=== PATIENT | female | born 2000 | race Caucasian/White ===

== ENCOUNTER 2021-03-15 15:48 | Inpatient (IN) | payer OTHER, SELFPAY ==
[2021-03-15] VITALS (10 sets, daily range): BP systolic 89–125; BP diastolic 43–77; PULSE 72–92; TEMP 36.5–36.6; BMI 45.6
--- OUTSIDE RECORDS SUMMARY | 2021-03-15 15:55 | XMS_ITS | Encounter Summary ---
:2000 Author Care Team Providers Name Role Phone Mya Muhammad Primary Care Provider [phone] Reason for Visit None recorded. Assessment and Plan 1. Gestational diabetes mellitus , class A>1< Diet teaching completed over t he phone as pt is pending COVID testing. Went over ideal ranges for FBS and pp BS. Haylie t over carb counting and carb ranges for each meal/snack. Gave ideas for foods to eat for meals/snacks. Discussed drink options and to avoid soda and juice. Pt drinks sweet tea and told pt to cut this out. Can do water with sugar free flavor enhancer. T old pt she can go online to ADA for meal options or to look up low carb meal reci pes online for ideas as well. Pt states she normally just eats 2 meals a day and [place] sn't really eat breakfast ever. Told pt importance of eating smaller, more frequ ent meals throughout the day. Even if it isn't a big meal to try to eat meals/sna cks. Pt picked up glucometer last night and a few of her levels were normal. Told pt t o continue checking BS QID and adjusting diet to follow low carb diet to try to keep B S within normal range. Pt aware if sugars aren't controlled by diet we would discu ss starting insulin. Went over NST schedule with pt and importance of keeping these appts and checking BS for her and baby's health. Pts questions were answered and pt verbalized understanding. FEDERICO nesbitt ? US, obstetric, follow-up Discussion Note: None recorded.Patient educational handouts: No information available. Plan of Care Reminders Provider Appointments Ob Routine 03/17/2021 Gee Moon, 10:30AM CNM ? Ob Routine 03/24/2021 Vandana Moon, 10:30AM CNM
--- OUTSIDE RECORDS SUMMARY | 2021-03-15 15:55 | XMS_ITS ---
:2000 Author Care Team Providers Name Role Phone HAMRAN JOSHI Primary Care Provider [phone] Allergies Code Code System Name Reaction Severity Status Onset NKDA ? Medications Name Status Start Date Stop Date ? ? cetirizine 10 mg tablet Active ? Not avai lable TAKE 1 TABLET BY MOUTH DAILY fluticasone propionate 50 mcg/actuation nasal spray,suspension A ctive ? Not available INSTILL 1 SPRAY IN EACH NOSTRIL TWICE DAILY FOR 14 DAYS OneTouch Delica Plus Lancet 30 gauge Active ? Not available USE TO TEST BLOOD GLUCOSE FOUR TIMES DAILY OneTouch Verio Reflect Meter Active ? Not available USE TO TEST BLOOD GLUCOSE FOUR TIMES DAILY OneTouch Verio test strips Active ? Not a vailable Active ? Not available Problems Name Status Onset Date Source ? Maternal Obesity Complicating , Active 021 ? Childbirth and the Puerperium, Antepartum Active 09/12/2020 ? Gestational Diabetes Mellitus, Class a>1< Active 2020 ? Procedures Date Name Performed by ? 08/28/2020 US, Obstetric, 1St Trimester [facility] [address] [place] [address] ([address]) 09/12/2020 US, Obstetric, Nuchal Translucency [place] [place] [address] [place], [place] [address]
--- OUTSIDE RECORDS SUMMARY | 2021-03-15 15:55 | XMS_ITS | Encounter Summary ---
:2000 Author Care Team Providers Name Role Phone Mya Muhammad Primary Care Provider [phone] Reason for Visit None recorded. Assessment and [...] verbalized understanding. FEDERICO nesbitt ? US, obstetric, biophysical profile + non-stress test Discussion Note: None recorded.Patient educational handouts: No information available. Plan of Care Reminders Provider Appointments Ob Routine 03/17/2021 Gee Moon, 10:30AM CNM ? Ob Routine 03/24/2021 Vandana Moon, 10:30AM
--- OUTSIDE RECORDS SUMMARY | 2021-03-15 15:55 | XMS_ITS | Encounter Summary ---
:2000 Author Care Team Providers Name Role Phone Mya Muhammad Primary Care Provider [phone] Reason for Visit None recorded. Assessment and Plan 1. Maternal obesity complicating , childbirth and the puerperium, antepartum ? non-stress test Discussion Note: None recorded.Patient educational handouts: No information available. Plan of Care Reminders Provider Appointments Ob Routine 03/17/2021 Gee Moon, 10:30AM CNM ? Ob Routine 03/24/2021 Vandana Moon, 10:30AM CNM ? 3Hr on or around [place] Glucose 04/25/2021 MD [facility] None ? ? recorded. Referral None ? ? recorded. Procedures None ? ? recorded. Surgeries None ? ? recorded. Imaging Non-stress 03/10/2021 M[facility]i [facility] Test Medications Name Start Date ? ? cetirizine 10 mg tablet ? TAKE 1 TABLET BY MOUTH DAILY fluticasone propionate 50 mcg/actuation nasal spray,lackey spension ? INSTILL 1 SPRAY IN EACH NOSTRIL TWICE DAILY FOR 14 DA YS OneTouch Delica Plus Lancet 30 gauge ? USE TO TEST BLOOD GLUCOSE FOUR TIMES DAILY OneTouch Verio Reflect Meter ? USE TO TEST BLOOD GLUCOSE FOUR TIMES DAILY OneTouch Verio test strips ? ? Medica
--- OUTSIDE RECORDS SUMMARY | 2021-03-15 15:55 | XMS_ITS | Encounter Summary ---
:2000 Author Care Team Providers Name Role Phone Mya Muhammad Primary Care Provider [phone] Reason for Visit OB visit 35w3d Assessment and Plan Assessment Note Patient is ___weeks . Discu ssed plan. Discussion Note: None recorded.Patient educational handouts: No information available. Plan of Care Reminders Provider Appointments Ob Routine 03/17/2021 Gee Moon, 10:30AM CNM ? Ob Routine 03/24/2021 Vandana Moon, 10:30AM CNM ? 3Hr on or around [place] Glucose 04/25/2021 MD [facility] None ? ? recorded. Referral None ? ? recorded. Procedures None ? ? recorded. Surgeries None ? ? recorded. Imaging None ? ? recorded. Medications Name Start Date ? ? cetirizine [...] DAILY OneTouch Verio test strips ? ? Medications Administered None recorded. Vitals
--- OUTSIDE RECORDS SUMMARY | 2021-03-15 15:55 | XMS_ITS | Encounter Summary ---
:2000 Author Care Team Providers Name Role Phone Mya Muhammad Primary Care Provider [phone] Reason for Visit OB visit Assessment and Plan Assessment Note Patient is ___weeks . Discu ssed plan. 1. Routine care Discussion Note: None recorded.Patient educational handouts: No [...] test strips ? ? Medications Administered None una
--- OUTSIDE RECORDS SUMMARY | 2021-03-15 15:55 | XMS_ITS | Encounter Summary ---
:2000 Author Care Team Providers Name Role Phone Mya Muhammad Primary Care Provider [phone] Reason for Visit None recorded. Assessment and [...]
--- OUTSIDE RECORDS SUMMARY | 2021-03-15 15:55 | XMS_ITS | Encounter Summary ---
:2000 Author Care Team Providers Name Role Phone Mya Muhammad Primary Care Provider [phone] Reason for Visit None recorded. Assessment and [...] Surgeries None ? ? recorded. Imaging Non-stress 03/03/2021 [facility] Test Medications Name Start Date [...] DAILY OneTouch Verio test strips ? ? Medicat
--- OUTSIDE RECORDS SUMMARY | 2021-03-15 15:55 | XMS_ITS | Encounter Summary ---
:2000 Author Care Team Providers Name Role Phone Mya Muhammad Primary Care Provider [phone] Reason for Visit None recorded. Assessment and [...] and pt verbalized understanding. FEDERICO nesbitt ? non-stress test Discussion Note: None recorded.Patient educational handouts: No information available. Plan of Care Reminders Provider Appointments Ob Routine 03/17/2021 Gee Moon, 10:30AM CNM ? Ob Routine 03/24/2021 Vandana Moon, 10:30AM CNM ?
--- OUTSIDE RECORDS SUMMARY | 2021-03-15 15:55 | XMS_ITS | Encounter Summary ---
:2000 Author Care Team Providers Name Role Phone Mya Muhammad Primary Care Provider [phone] Reason for Visit OB visit Assessment and Plan 1. Maternal obesity complicating , childbirth and the puerperium, antepartum 2. Gestational diabetes mellitus , class A>1< Discussion Note: None recorded.Patient educational handouts: No [...] DAILY OneTouch Verio test strips ? ? M
--- OUTSIDE RECORDS SUMMARY | 2021-03-15 15:55 | XMS_ITS | Encounter Summary ---
:2000 Author Care Team Providers Name Role Phone Mya Muhammad Primary Care Provider [phone] Reason for Visit OB visit Assessment and [...] test strips ? ? Medications Administered None rec
--- OUTSIDE RECORDS SUMMARY | 2021-03-15 15:55 | XMS_ITS | Encounter Summary ---
:2000 Author Care Team Providers Name Role Phone Mya Muhammad Primary Care Provider [phone] Reason for Visit OB visit Assessment and Plan 1. Gestational diabetes mellitus , class A>1< 2. Maternal obesity complicating , childbirth and the puerperium, antepartum Discussion Note: None recorded.Patient educational handouts: No [...] DAILY OneTouch Verio test strips ? ? Med
--- OUTSIDE RECORDS SUMMARY | 2021-03-15 15:55 | XMS_ITS | Encounter Summary ---
:2000 Author Care Team Providers Name Role Phone Mya Muhammad Primary Care Provider [phone] Reason for Visit None recorded. Assessment and Plan 1. Gestational diabetes mellitus , class A>1< ? US, obstetric, biophysical profile + non-stress test Discussion Note: None recorded.Patient educational handouts: No information available. Plan of Care Reminders Provider Appointments Ob Routine 03/17/2021 Gee Moon, 10:30AM CNM ? Ob Routine 03/24/2021 Vandana Moon, 10:30AM CNM ? 3Hr Glucose on or around [place] 04/25/2021 MD [facility] None ? ? recorded. Referral None ? ? recorded. Procedures None ? ? recorded. Surgeries None ? ? recorded. Imaging US, 03/03/2021 [place] [facility], Biophysical Profile + Non-stress Test Medications Name Start Date ? ? [...] TEST BLOOD GLUCOSE FOUR TIMES DAILY OneTouch Ve
--- OUTSIDE RECORDS SUMMARY | 2021-03-15 15:55 | XMS_ITS | Encounter Summary ---
:2000 Author Care Team Providers Name Role Phone Mya Muhammad Primary Care Provider [phone] Reason for Visit None recorded. Assessment and [...]
--- OUTSIDE RECORDS SUMMARY | 2021-03-15 15:56 | XMS_ITS | Encounter Summary ---
:2000 Author Care Team Providers Name Role Phone Mya Muhammad Primary Care Provider [phone] Reason for Visit None recorded. Assessment and [...] Surgeries None ? ? recorded. Imaging Non-stress 02/10/2021 [facility] Test Medications Name Start Date [...] DAILY OneTouch Verio test strips ? ? Medic
--- OUTSIDE RECORDS SUMMARY | 2021-03-15 15:56 | XMS_ITS | Encounter Summary ---
:2000 Author Care Team Providers Name Role Phone Mya Muhammad Primary Care Provider [phone] Reason for Visit None recorded. Assessment and Plan 1. Gestational diabetes mellitus ? US, obstetric, follow-up Discussion Note: None [...] Surgeries None ? ? recorded. Imaging US, 01/15/2021 [facility], Follow-up Medications Name Start Date ? ? cetirizine [...]
--- OUTSIDE RECORDS SUMMARY | 2021-03-15 15:56 | XMS_ITS | Encounter Summary ---
:2000 Author Care Team Providers Name Role Phone Mya Muhammad Primary Care Provider [phone] Reason for Visit OB visit Assessment and [...] ? ? Medications Administered None recorded. Vitals Height Weight BMI
--- OUTSIDE RECORDS SUMMARY | 2021-03-15 15:56 | XMS_ITS | Encounter Summary ---
:2000 Author Care Team Providers Name Role Phone Mya Muhammad Primary Care Provider [phone] Reason for Visit OB visit Assessment and Plan Assessment Note Patient is ___weeks . Discu ssed plan. 1. Routine care ? US, obstetric, 2nd or 3rd trimester Discussion Note: None recorded.Patient educational handouts: No [...] Surgeries None ? ? recorded. Imaging US, 01/13/2021 [facility], 2Nd or 3Rd Imaging Trimester Medications Name Start Date ? ? cetirizine 10 mg tablet ? TAKE 1 TABLET BY MOUTH DAILY fluticasone propionate 50 mcg/actuation nasal spray,lackey spension ? INSTILL 1 SPRAY IN EACH NOSTRIL TWICE DAILY FOR 14 DA YS OneTouch Delica Plus Lancet 30 gauge ? USE TO TEST BLOOD GLUCOSE FOUR TIMES DAILY OneTouch Verio Reflect Meter ? USE TO TEST BLOOD GLUC
--- OUTSIDE RECORDS SUMMARY | 2021-03-15 15:56 | XMS_ITS | Encounter Summary ---
:2000 Author Care Team Providers Name Role Phone Mya Muhammad Primary Care Provider [phone] Reason for Visit OB visit Assessment and Plan 1. Routine care Discussion Note: None recorded.Patient educational handouts: No information available. Plan of Care Reminders Provider Appointments Ob Routine 03/17/2021 Gee Moon, 10:30AM CNM ? Ob Routine 03/24/2021 Vandana Moon, 10:30AM CNM ? 3Hr on or around [place] Glucose 04/25/2021 MD [facility] None ? [...] Administered None recorded. Vitals Height Weight BMI Blood Pressure 5 ft 6 in 263 lbs 42.4 kg/m2
--- OUTSIDE RECORDS SUMMARY | 2021-03-15 15:56 | XMS_ITS | Encounter Summary ---
:2000 Author Care Team Providers Name Role Phone Mya Muhammad Primary Care Provider [phone] Reason for Visit None recorded. Assessment and Plan 1. Gestational diabetes mellitus , class A>1< ? US, obstetric, follow-up ? US, obstetric, biophysical profile + non-stress [...] Surgeries None ? ? recorded. Imaging US, 02/10/2021 [facility], Follow-up ? US, 02/10/2021 [facility], Biophysical Profile + Non-stress Test Medications Name Start Date ? ? cetirizine 10 mg tablet ? TAKE 1 TABLET BY MOUTH DAILY fluticasone propionate 50 mcg/actuation nasal spray,lackey spension ? INSTILL 1 SPRAY IN EACH NOSTRIL TWICE DAILY FOR 14 DA YS
[2021-03-15 16:20] LABS: Basophils Percent Auto 0.1 % (0.2-1.2); Eosinophils Absolute Auto 0.1 K/mm3 (0-0.3); Eosinophils Percent Auto 0.7 % (0-4.4); Hemoglobin 11.2 g/dL (12.0-15.0); Immature Granulocyte Absolute 0.07 K/mm3 (0.00-0.031); Immature Granulocyte Percent A 0.6 % (0-0.5); Lymphocytes Percent Auto 18.7 % (18.3-44.2); Mean Corpuscular HGB Conc 31.1 g/dl (32-36); Mean Corpuscular Hemoglobin 24.7 pg (26-34); Mean Corpuscular Volume 79.3 fl (80-100); Mean Platelet Volume 10.5 fl (7.4-10.4); Monocytes Absolute Auto 0.5 K/mm3 (0.1-0.6); Monocytes Percent Auto 4.4 % (2.6-8.5); Neutrophils Absolute Auto 8.9 K/mm3 (1.3-6.7); Neutrophils Percent Auto 75.5 % (45.5-73.1); Platelet Count Result 313 k/mm3 (150-375); Red Blood Count 4.54 M/mm3 (4.2-5.4); Red Cell Distribution Width 15.7 % (11.5-14.5); White Blood Count 11.8 K/mm3 (4.5-10.0)
--- NOTE | 2021-03-15 16:20 | LDADM ---
This patient, Mahogany Burns, was admitted to Labor/Delivery/Recovery 107 on 03/15/21 at 15:48. Plans for labor, pain management and were discussed with patient. Patient/family oriented to hospital policies and general routines including ID bracelet, bed and alarms, visiting hours, pain management, procedures, bathroom and other care routines, personal items, smoking policy, room service/diet and guest tray routines, security routines, and visiting hours. Patient/Family are encouraged to report perceived risks to care and to ask questions if they do not understand what they are told or what they should do. See OBIX for further documentation.
[2021-03-15 16:33] LABS: Glucose Point of Care 68 mg/dl (65-105)
[2021-03-15] MEDS: DINOPROSTONE 10 MG VAG INSERT VAGINAL (16:49)
--- NOTE | 2021-03-15 17:05 | P.PNAN_ITS ---
Anes - Eval Pre Procedure Procedure: labor epidural Date/Time: 03/15/21 17:05 Surgeon: anamika Pre Op Diagnosis: Labor Patient Data Age: 20 Gender: F Height: 1.65 m Weight: 124.5 kg Last Vital Signs Pulse 84 03/15/21 17:01 BP 114/55 L 03/15/21 17:01 Allergies Allergy/AdvReac Type Severity Reaction Status Date / Time No Known Allergies Allergy Verified 03/03/21 12:07 Home Medications Medication Instructions Recorded Confirmed Type prenat.vits,sp,guc-ydil-vjzfn 1 tablet PO DAILY 03/03/21 03/03/21 History [ #2] Laboratory Tests 03/15/21 03/15/21 03/15/21 16:12 16:14 16:14 WBC 11.8 K/mm3 H K/mm3 (4.5-10.0) RBC 4.54 M/mm3 M/mm3 (4.2-5.4) Hgb 11.2 g/dL L g/dL (12.0-15.0) Hct 36.0 % L % (37.0-47.0) MCV 79.3 fl L fl (80-100) MCH 24.7 pg L pg (26-34) MCHC 31.1 g/dl L g/dl (32-36) RDW 15.7 % H % (11.5-14.5) Plt Count 313 k/mm3 k/mm3 (150-375) MPV 10.5 fl H fl (7.4-10.4) Immature Gran % (Auto) 0.6 % H % (0-0.5) Neut % (Auto) 75.5 % H % (45.5-73.1) Lymph % (Auto) 18.7 % % (18.3-44.2) [place] % (Auto) 4.4 % % (2.6-8.5) Eos % (Auto) 0.7 % % (0-4.4) Baso % (Auto) 0.1 % L % (0.2-1.2) Lymph # (Auto) 2.20 K/mm3 K/mm3 (0.9-3.2) [place] # (Auto) 0.5 K/mm3 K/mm3 (0.1-0.6) Eos # (Auto) 0.1 K/mm3 K/mm3 (0-0.3) Baso # (Auto) 0.0 K/mm3 K/mm3 (0.0-0.1) Abs Immat Gran (auto) 0.07 K/mm3 H K/mm3 (0.00-0.031) Absolute Neuts (auto) 8.9 K/mm3 H K/mm3 (1.3-6.7) Absolute Nucleated RBC 0.0 K/mm3 K/mm3 (0.0-0.012) Nucleated RBC % 0.0 % % (0.0-0.2) POC Capillary Glucose 68 mg/dl mg/dl (65-105) RPR Pending Patient hx anesthesia problems: none Family hx anesthesia problems: none Results Review: All pre-operative results and documents have been reviewed as part of the pre-operative evaluation. [facility] Family History Family History (Updated 03/03/21 @ 12:10 by Soledad Dumont RN) Grandparent Diabetes mellitus Bone cancer Liver cancer Social History Social History Smoking status: Never smoker Substance use: never Spiritual care concerns: No Exam Day of Procedure 03/15/21 17:05
[2021-03-16] VITALS (106 sets, daily range): BP systolic 64–142; BP diastolic 24–93; PULSE 68–150; RESP 12–16; TEMP 36.1–37.1; O2SAT 97–100
[2021-03-16] MEDS: ACETAMINOPHEN 325 MG TABLET 650 MG PO (00:07)
[2021-03-16 00:12] LABS: Glucose Point of Care 110 mg/dl (65-105)
[2021-03-16 04:08] LABS: Glucose Point of Care 97 mg/dl (65-105)
--- NOTE | 2021-03-16 06:48 | WPDOBADMIT ---
Obstetrics - Admit Note Admission Note: record reviewed. No pertinent additions to the history and/or any subsequent changes in the physical findings that are not consistent with the expected course of the were found. Additions to the history and/or subsequent changes in the physical findings follow. IOL cervidil 39 weeks, GDMA1
--- NOTE | 2021-03-16 06:49 | PM.OBPRVD ---
OB - Delivery Note Procedure Delivery date: 03/16/21 Procedure: events: Gestational Diabetes Delivery monitor: external FHT and external uterine Route of delivery: Episiotomy description: None Laceration Description: Perineal - 1st Degree Delivery repair: vicryl Specimen: No Quantitative Blood Loss (ml): 150 Anesthesia type: Epidural Disposition: floor Narrative: With adequate expulsive efforts by the mother, the baby's head was delivered OA. The baby's anterior shoulder was delivered under the pubic symphysis without difficulty. The posterior shoulder and the rest of the baby delivered without difficulty. The infant was placed on the mothers chest and suctioned and stimulated. The cord was clamped and cut after 30 seconds. Mother and baby both stable. Baby Date of : 03/16/21 Time of : 06:36 Weeks of gestation at delivery: 39 gender: Female Weight (pounds): 8 Weight (ounces): 0 presentation: vertex Placenta delivery description: Spontaneous cord vessel description: 3 Vessels and Nuchal Cord score one minute: 8 score five minutes: 9
[2021-03-16] MEDS: OXYTOCIN 30 UNITS/NS 500 ML 30 UNITS/500 ML BAG 125 UNITS IV CONT (07:18)
[2021-03-16] MEDS: WITCH HAZEL 40 PADS 1 PAD TOPICAL (09:30)
[2021-03-16] MEDS: BENZOCAINE 20% AER SPR (*SP) 56 GM CAN 1 SPRAY TOPICAL (09:30)
[2021-03-16 10:27] LABS: Rapid Plasma Reagin Non-Reactive (NonReactive)
--- NOTE | 2021-03-16 10:33 | OBPPTRN ---
0938 Patient transferred to post room #281 via W/C. Support person present. Oriented to unit, room, information board, rooming in, admission packet and security measures. Patient verbalizes understanding.
[2021-03-16] MEDS: IBUPROFEN 600 MG TABLET PO (19:37)
[2021-03-17 00:30] VITALS: BP 141/84; PULSE 82; RESP 16; TEMP 36.9; O2SAT 100
[2021-03-17 04:35] VITALS: BP 113/66; PULSE 100; RESP 18; TEMP 36.7; O2SAT 100
[2021-03-17 05:35] LABS: Hematocrit 34.5 % (37.0-47.0); Hemoglobin 10.5 g/dL (12.0-15.0)
[2021-03-17] MEDS: ACETAMINOPHEN 325 MG TABLET 650 MG PO (06:04)
--- NOTE | 2021-03-17 07:48 | PM.OBPNVD ---
OB - PN: Subj Subjective Date/time seen: 03/17/21 07:48 Patient comments: no complaints, pain well controlled and tolerating diet [place] baby status: doing well and nursing well [place] feeding status: exclusively breast feeding Narrative: would like DC today OB - PN: Obj Data Labs CBC & Chem 7: 03/17/21 04:57 Labs: Laboratory Results - last 24 hr 03/15/21 03/17/21 16:14 04:57 Hgb 10.5 L Hct 34.5 L RPR Non-reactive OB - PN A/P Plan day: 1 Plan: routine care and discharge home Time Spent With Patient Time: Total time spent is greater than 50% in coordination of care (as documented) at patient's floor/unit and/or counseling patient: Time with patient: less than 15 minutes Exam Narrative: NAD abdomen soft, nontender, fundus firm below the umbilicus Extremities nontender, 1+ edema
--- NOTE | 2021-03-17 07:50 | PM.OBDSVD ---
DS: Admitting Diagnosis Discharge Date 03/17/21 Admitting Diagnosis term IUP DS: Discharge Diagnosis Discharge Diagnosis (1) , delivered: Code(s): O80 - Encounter for full-term uncomplicated delivery Status: Acute OB - DS: Summary OB Procedures : Ultrasound OB Procedures Intrapartum: Spontaneous Vag Delivery OB Procedures: : None Peripartum Data Infant Delivery Method: Natural Vaginal Laceration Description: Perineal - 1st Degree complications: none Status at Discharge Functional status at discharge: independent ambulation Time Spent with Patient Time attestation: Total time spent providing and/or coordinating discharge services: Exam Narrative: NAD abdomen soft, appropriately tender Ext non tender, 1+ edema DS: Data Data Completed and Pending Labs on day of discharge: Labs from last 24 hours 03/17/21 03/15/21 04:57 16:14 Hgb 10.5 L Hct 34.5 L RPR Non-reactive Discharge Plan Discharge Attending physician on discharge: Dominique Mg Discharging Clinician: Dominique Mg Anticipated Discharge Date/Time: 03/17/21 14:00 Patient Disposition: Home, Self-Care Activity: may shower and pelvic rest Diet: as tolerated Patient Instructions: Antibiotic Form Stand Alone Forms: General Discharge Information Follow-up/Referrals: Dominique Mg MD [Physician] - 4 Weeks Discharge Medications: Continued #2 Tablet 1 tablet PO DAILY RF: 0 Date of admission: 03/15/21 15:48 Primary Care Provider: Radha,Mya Dejesus Admitting Provider: Dominique Mg Attending physician on admission: Dominique Mg Condition: Stable
[2021-03-17] MEDS: MULTIVIT/MIN/PREN/FOL AC/IRON TABLET 1 TAB PO (08:24)
[2021-03-17 08:25] VITALS: BP 121/67; PULSE 89; RESP 18; TEMP 36.3; O2SAT 98
--- NOTE | 2021-03-17 09:20 | PC.NURSE ---
Mother called out for assist with feeding, reporting tenderness with feeding and is on and off several times. Infant is at breast with a shallow latch in cross cradle. Mother reports she has been given a nipple shield and is not using shield. Infant is able to freely thrust tongue past gum ridge and flange both lips. Skin is intact on both nipples, slight redness noted no bruising noted. Suggested mother release latch. Assisted with to breast. Reviewed positioning/alignment in cross cradle, holding breast in ?U? hold and guided asymmetrical latch on. Reviewed rational for each. able to latch correctly within a few attempts. Infant nursed eagerly with steady draws and occasional swallowing noted, some pausing noted. Reviewed signs of a correct latch, effective nursing and suck swallow ratio. Suggested mother stimulate while feeding to increase stimulate, increase intake and to assist with maintaining deep latch. would slip to shallow latch causing tenderness. Demonstrated how to adjust latch more deeply while feeding if needed. Mother reports she can feel the difference in latch with less tenderness. Mother released hold on breast infant slipped to shallow latch. Advised to hold breast during entire feeding to assist with maintaining deep latch. Reviewed infant feeding cues, frequencies, duration of feedings, feeding elimination flow sheet, and signs of adequate intake. Nipple care reviewed of lanolin after feedings, warm compresses as needed. Instructed mother to call out for RN assistance if she is unable to latch infant for feeding or she has discomfort with nursing. Instructed feeding should be initiated three hours from start of last feeding or if feeding cues are noted before. Mother voiced understanding of information shared. Mother reports she wishes to be discharged today. Mother is feeding as required and waking to feed if needed. Infant is currently meeting outcomes for weight, output, jaundice and feeding frequencies. Mother states she feels confident to continue at home. Advised to continue to work with deep latch. Reviewed transition to breast milk, signs of adequate intake, and engorgement/relief. Instructed to call ICP if intake/output less than required. Reviewed regular medications mother is taking. Information provided per My. Reviewed community resources on the [facility] website and in the Mom/Baby guide. Information on outpatient services provided. Mother has no further questions at this time.
--- NOTE | 2021-03-17 09:43 | WPDANLDPN2 ---
Anes-Prog Note L&D Date/Time: 03/17/21 09:43 Comfortable throughout: labor and delivery Neuraxial method: epidural Epidural/Spinal procedure site: clean & non-tender Neuro status: Neuro function grossly intact. Cardiovascular status: normal Respiratory status: normal Airway patency: baseline Mental status: baseline Post-Op hydration status: normal Vital Signs: Last Vital Signs Temp 36.3 C L 03/17/21 08:25 Pulse 89 03/17/21 08:25 Resp 18 03/17/21 08:25 BP 121/67 03/17/21 08:25 Pulse Ox 98 03/17/21 08:25 Pain score (VAS): 06/08 Post-procedural complaints: none Patient feedback: Patient satisfied with anesthetic care.
--- NOTE | 2021-03-17 13:20 | PC.NURSE ---
1100 Patient viewed the discharge video Mother & Baby Care, The First Two Weeks . Patient was given the opportunity and encouraged to ask questions. Patient verbalized understanding of information shared and has been given the mother/baby guide for home reference.
[2021-03-18 10:29] VITALS: BP 119/71; PULSE 81; RESP 20; TEMP 36.9; O2SAT 99
== END 2021-03-17 11:25 | disposition home or self-care (01) | DRG 560 ==
LOC: ANHLDR 15:53 → ANHOB2 03-16 09:44
PROVIDERS: Admitting Provider Obstetrics & Gynecology; PCP Family Medicine; Visit Provider Obstetrics & Gynecology
DX: O24.429 Gestational diabetes mellitus in childbirth, unspecified control (principal); Z37.0 Single live birth; Z3A.39 39 weeks gestation of pregnancy; O70.0 First degree perineal laceration during delivery
CPT/HCPCS: 36415; 82948; 84112; 85014; 85018; 85025; 86592; 86850; 86900; 86901; A9270; J2590; J2795

== ENCOUNTER 2022-02-09 04:40 | Inpatient (IN) | payer OTHER, SELFPAY ==
[2022-02-09] VITALS (35 sets, daily range): BP systolic 96–146; BP diastolic 46–74; PULSE 63–120; RESP 16–18; TEMP 36.2–36.8; O2SAT 96–100; BMI 45.8
--- OUTSIDE RECORDS SUMMARY | 2022-02-09 04:55 | XMS_ITS ---
:2000 Author Care Team Providers Name Role Phone HARMAN JOSHI Primary Care Provider [phone] Allergies Code Code System Name Reaction Severity Status Onset NKDA ? Medications Name Status Start Date Stop Date ? ? cetirizine 10 mg tablet Completed ? 04/17/20 21 TAKE 1 TABLET BY MOUTH DAILY fluticasone propionate 50 mcg/actuation nasal spray,suspension C ompleted ? 04/17/2021 INSTILL 1 SPRAY IN EACH NOSTRIL TWICE DAILY FOR 14 DAYS OneTouch Delica Plus Lancet 30 gauge Completed ? 04/17/2021 USE TO TEST BLOOD GLUCOSE FOUR TIMES DAILY OneTouch Verio Reflect Meter Completed ? USE TO TEST BLOOD GLUCOSE FOUR TIMES DAILY OneTouch Verio test strips Active ? Not a vailable Active ? Not available Problems Name Status Onset Date Source ? Maternal Obesity Complicating , Childbirth and the Acti ve 09/12/2020 ? Puerperium, Antepartum Unknown 09/12/2020 ? Gestational Diabetes Mellitus, Class a>1< Unknown 2020 ? Vaccination Not Done Active 06/30/2021 ? Active 07/28/2021 ? Gestational Diabetes Mellitus, Class a>1< Active 2021 ? Social Problem Active 01/19/2022 ? Procedures Date Name Performed by ? 08/28/2020 US, Obstetric, 1St Trimester [place] [address] [place] [address] ([address]) 09/12/2020 US, Obstetric, Nuchal Translucency [facility] [address]
--- OUTSIDE RECORDS SUMMARY | 2022-02-09 04:56 | XMS_ITS | Encounter Summary ---
:2000 Author Care Team Providers Name Role Phone Mya Muhammad Primary Care Provider [phone] Reason for Visit OB visit OB [id number] EDC 02/18/2022 LMP 06/14/2020 Assessment and Plan 1. Gestational diabetes mellitus, class A>1< 2. Maternal obesity complicating pregna ncy, childbirth and the puerperium, antepartum Discussion Note: None recorded.Patient educational handouts: No information available. Plan of Care Reminders Provider Appointments Induction 02/15/2022 6:00AM Dominique Mg MD ? Ob Routine 02/16/2022 4:00PM Dominique Mg MD ? Nst 02/16/2022 3:00PM Nst, , EQUIP ? U/S OB BPP 02/16/2022 3:30PM Ultrasound, TECH ? 3Hr Glucose on or around 04/01/2022 Dominique iris Mg MD Lab None recorded. ? ? Referral None recorded. ? ? Procedures None recorded. ? ? Surgeries None recorded. ? ? Imaging None recorded. ? ? Medications Name Start Date ? ? OneTouch Verio test strips ? ? Medications Administered None recorded. Vitals Height Weight BMI Blood Pressure 5 ft 6 in 270 lbs 43.6 kg/m2 117/74 mm[Hg] Results Lab Results None recorded. Allergies Code Code System Name Reaction Severity Onset NKDA ? ? ? Problems Name Status Onset Date Source ? Maternal Obesity Complicating , Childbirth and the Acti ve 09/12/2020 ? Puerperium, Antepartum Vaccination Not Done Active 06/30/2021 ? Active 07/28/2021 ? Gestation
--- OUTSIDE RECORDS SUMMARY | 2022-02-09 04:56 | XMS_ITS | Encounter Summary ---
:2000 Author Care Team Providers Name Role Phone Mya Muhammad Primary Care Provider [phone] Reason for Visit None recorded. Assessment and Plan 1. Gestational diabetes mellitus, class A>1< ? US, obstetric, biophysical profile + non-stress test Discussion Note: None recorded.Patient educational handouts: No information available. Plan of Care Reminders Provider Appointments Induction 02/15/2022 6:00AM Dominique Mg MD ? Ob Routine 02/16/2022 4:00PM Dominique Mg MD ? Nst 02/16/2022 3:00PM Nst, , EQUIP ? U/S OB BPP 02/16/2022 3:30PM Ultrasound, TECH ? 3Hr Glucose on or around Dominique perez MD 04/01/2022 Lab None recorded. ? ? Referral None recorded. ? ? Procedures None recorded. ? ? Surgeries None recorded. ? ? Imaging US, Obstetric, 01/12/2022 [place] Biophysical Profile + Non-stress Test Medications Name Start Date ? ? OneTouch Verio test strips ? ? Medications Administered None recorded. Vitals None recorded. Results Lab Results None recorded. Allergies Code Code System Name Reaction Severity Onset NKDA ? ? ? Problems Name Status Onset Date Source ? Maternal Obesity Complicating , Childbirth and the Acti ve 09/12/2020 ? Puerperium, Antepartum Vaccination Not Done Active 06/30/2021 ? Active 07/28/2021
--- OUTSIDE RECORDS SUMMARY | 2022-02-09 04:56 | XMS_ITS | Encounter Summary ---
:2000 Author Care Team Providers Name Role Phone Mya Muhammad Primary Care Provider [phone] Reason for Visit None recorded. Assessment and Plan 1. Gestational diabetes mellitus, class A>1< ? non-stress test Discussion Note: None recorded.Patient [...] ? Surgeries None recorded. ? ? Imaging Non-stress Test 02/02/2022 [place] Medications Name Start Date ? ? OneTouch [...]
--- OUTSIDE RECORDS SUMMARY | 2022-02-09 04:56 | XMS_ITS | Encounter Summary ---
:2000 Author Care Team Providers Name Role Phone Mya Muhammad Primary Care Provider [phone] Reason for Visit None recorded. Assessment and [...] None recorded. ? ? Imaging Non-stress Test 01/26/2022 [place] Medications Name Start Date ? ? OneTouch [...]
--- OUTSIDE RECORDS SUMMARY | 2022-02-09 04:56 | XMS_ITS | Encounter Summary ---
:2000 Author Care Team Providers Name Role Phone Mya Muhammad Primary Care Provider [phone] Reason for Visit None recorded. Assessment and Plan 1. Gestational diabetes mellitus, class A>1< ? US, obstetric, follow-up ? [...] None recorded. ? ? Imaging US, Obstetric, Follow-up 01/26/2022 [place] ? US, Obstetric, 01/26/2022 [place] Biophysical Profile + Non-stress Test Medications Name [...]
--- OUTSIDE RECORDS SUMMARY | 2022-02-09 04:56 | XMS_ITS | Encounter Summary ---
:2000 Author Care Team Providers Name Role Phone Mya Muhammad Primary Care Provider [phone] Reason for Visit None recorded. Assessment and Plan 1. Maternal obesity complicating pregna ncy, childbirth and the puerperium, antepartum ? US, obstetric, biophysical profile + non-stress [...] None recorded. ? ? Imaging US, Obstetric, 01/19/2022 [place] Biophysical Profile + Non-stress Test Medications Name [...]
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
--- OUTSIDE RECORDS SUMMARY | 2022-02-09 04:56 | XMS_ITS | Encounter Summary ---
:2000 Author Care Team Providers Name Role Phone Mya Muhammad Primary Care Provider [phone] Reason for Visit None recorded. Assessment and [...] None recorded. ? ? Imaging Non-stress Test 01/19/2022 [place] Medications Name Start Date ? ? OneTouch [...]
--- OUTSIDE RECORDS SUMMARY | 2022-02-09 04:56 | XMS_ITS | Encounter Summary ---
:2000 Author Care Team Providers Name Role Phone Mya Muhammad Primary Care Provider [phone] Reason for Visit OB visit Assessment and Plan 1. Gestational diabetes mellitus, [...] BMI Blood Pressure 5 ft 6 in 275 lbs 44.4 kg/m2 115/75 mm[Hg] Results Lab Results None recorded. Allergies Code Code System Name Reaction Severity Onset NKDA ? ? ? Problems Name Status Onset Date Source ? Maternal Obesity Complicating , Childbirth and the Acti ve 09/12/2020 ? Puerperium, Antepartum Vaccination Not Done Active 06/30/2021 ? Active 07/28/2021 ? Gestational Diabetes Mellitus, Class a>1< Active 2021 ?
--- OUTSIDE RECORDS SUMMARY | 2022-02-09 04:56 | XMS_ITS | Encounter Summary ---
:2000 Author Care Team Providers Name Role Phone Mya Muhammad Primary Care Provider [phone] Reason for Visit None recorded. Assessment and [...] None recorded. ? ? Imaging US, Obstetric, 02/02/2022 [place] Biophysical Profile + Non-stress Test Medications Name [...]
--- OUTSIDE RECORDS SUMMARY | 2022-02-09 04:56 | XMS_ITS | Encounter Summary ---
:2000 Author Care Team Providers Name Role Phone Mya Muhammad Primary Care Provider [phone] Reason for Visit OB visit Assessment and [...] BMI Blood Pressure 5 ft 6 in 272 lbs 43.9 kg/m2 139/89 mm[Hg] Results Lab Results None recorded. Allergies Code Code System Name Reaction Severity Onset NKDA ? ? ? Problems Name Status Onset Date Source ? Maternal Obesity Complicating , Childbirth and the Acti ve 09/12/2020 ? Puerperium, Antepartum Vaccination Not Done Active
--- OUTSIDE RECORDS SUMMARY | 2022-02-09 04:56 | XMS_ITS | Encounter Summary ---
:2000 Author Care Team Providers Name Role Phone Mya Muhammad Primary Care Provider [phone] Reason for Visit None recorded. Assessment and [...] None recorded. ? ? Imaging Non-stress Test 01/12/2022 [place] Medications Name Start Date ? ? OneTouch [...]
--- OUTSIDE RECORDS SUMMARY | 2022-02-09 04:57 | XMS_ITS | Encounter Summary ---
:2000 Author Care Team Providers Name Role Phone Mya Muhammad Primary Care Provider [phone] Reason for Visit None recorded. Assessment and Plan 1. Maternal obesity complicating pregna ncy, childbirth and the puerperium, antepartum ? US, obstetric, follow-up Discussion Note: None [...] None recorded. ? ? Imaging US, Obstetric, 12/03/2021 [place] Follow-up Medications Name Start Date ? ? OneTouch [...] a>1< Active 2021 ? Social Problem Active 01/19
--- OUTSIDE RECORDS SUMMARY | 2022-02-09 04:57 | XMS_ITS | Encounter Summary ---
:2000 Author Care Team Providers Name Role Phone Mya Muhammad Primary Care Provider [phone] Reason for Visit None recorded. Assessment and Plan 1. Gestational diabetes mellitus, class A>1< ? US, obstetric, follow-up Discussion Note: None [...] None recorded. ? ? Imaging US, Obstetric, 12/29/2021 [place] Follow-up Medications Name Start Date ? ? [...] Social Problem Active 01/19/2022 ? Procedures Date N
--- OUTSIDE RECORDS SUMMARY | 2022-02-09 04:57 | XMS_ITS | Encounter Summary ---
:2000 Author Care Team Providers Name Role Phone Mya Muhammad Primary Care Provider [phone] Reason for Visit None recorded. Assessment and Plan 1. Gestational diabetes mellitus, class A>1< ? US, obstetric, biophysical profile + non-stress test Discussion Note: None recorded.Patient educational handouts: No information available. Plan of Care Reminders Provider Appointments Induction 02/15/2022 6:00AM Doimnique Mg MD ? Ob Routine 02/16/2022 4:00PM Dominique Mg MD ? Nst 02/16/2022 3:00PM Nst, , EQUIP ? U/S OB BPP 02/16/2022 3:30PM Ultrasound, TECH ? 3Hr Glucose on or around Dominique perez MD 04/01/2022 Lab None recorded. ? ? Referral None recorded. ? ? Procedures None recorded. ? ? Surgeries None recorded. ? ? Imaging US, Obstetric, 01/05/2022 [place] Biophysical Profile + Non-stress Test Medications Name [...]
--- OUTSIDE RECORDS SUMMARY | 2022-02-09 04:57 | XMS_ITS | Encounter Summary ---
:2000 Author Care Team Providers Name Role Phone Mya Muhammad Primary Care Provider [phone] Reason for Visit OB visit Assessment and Plan Assessment Note Patient is ___weeks . Discussed plan. 1. Gestational diabetes mellitus, class A>1< 2. [...] BMI Blood Pressure 5 ft 6 in 274 lbs 44.2 kg/m2 111/72 mm[Hg] Results Lab Results None recorded. Allergies Code Code System Name Reaction Severity Onset NKDA ? ? ? Problems Name Status Onset Date Source ? Maternal Obesity Complicating , Childbirth and the Acti ve 09/12/2020 ? Puerperium, Antepartum Vaccination Not Done Active 06/30/2021 ?
--- OUTSIDE RECORDS SUMMARY | 2022-02-09 04:57 | XMS_ITS | Encounter Summary ---
:2000 Author Care Team Providers Name Role Phone Mya Muhammad Primary Care Provider [phone] Reason for Visit OB visit Assessment and [...] BMI Blood Pressure 5 ft 6 in 273 lbs 44.1 kg/m2 114/67 mm[Hg] Results Lab Results None recorded. Allergies Code Code System Name Reaction Severity Onset NKDA ? ? ? Problems Name Status Onset Date Source ? Maternal Obesity Complicating , Childbirth and the Acti ve 09/12/2020 ? Puerperium, Antepartum Vaccination Not Done Active 06/30/2021 ? Active 07/28/2021 ? Gestational Diabetes Mellitus, Class a>1< Active 2021 ?
--- OUTSIDE RECORDS SUMMARY | 2022-02-09 04:57 | XMS_ITS | Encounter Summary ---
:2000 Author Care Team Providers Name Role Phone Mya Muhammad Primary Care Provider [phone] Reason for Visit OB visit Assessment and Plan 1. Routine care 2. Gestational diabetes mellitus, class A>1< Discussion Note: None recorded.Patient educational [...] BMI Blood Pressure 5 ft 6 in 281 lbs 45.4 kg/m2 110/73 mm[Hg] Results Lab Results None recorded. Allergies [...]
--- OUTSIDE RECORDS SUMMARY | 2022-02-09 04:57 | XMS_ITS | Encounter Summary ---
:2000 Author Care Team Providers Name Role Phone Mya Muhammad Primary Care Provider [phone] Reason for Visit OB visit Assessment and Plan Assessment Note Patient is ___weeks . Discussed plan. 1. Routine care Discussion Note: None [...] BMI Blood Pressure 5 ft 6 in 278 lbs 44.9 kg/m2 106/69 mm[Hg] Results Lab Results None recorded. Allergies [...]
--- OUTSIDE RECORDS SUMMARY | 2022-02-09 04:57 | XMS_ITS | Encounter Summary ---
:2000 Author Care Team Providers Name Role Phone Mya Muhammad Primary Care Provider [phone] Reason for Visit None recorded. Assessment and [...] None recorded. ? ? Imaging Non-stress Test 01/05/2022 [place] Medications Name Start Date ? ? OneTouch [...]
--- NOTE | 2022-02-09 05:20 | LDADM ---
This patient, Mahogany Burns, was admitted to Labor/Delivery/Recovery 105 on 02/09/22 at 04:40. Plans for labor, pain management and were discussed with patient. Patient/family oriented to hospital policies and general routines including ID bracelet, bed and alarms, visiting hours, pain management, procedures, bathroom and other care routines, personal items, smoking policy, room service/diet and guest tray routines, infant security routines, and visiting hours. Patient/Family are encouraged to report perceived risks to care and to ask questions if they do not understand what they are told or what they should do. See OBIX for further documentation.
[2022-02-09 05:47] LABS: Basophils Percent Auto 0.1 % (0.2-1.2); Eosinophils Percent Auto 0.3 % (0-4.4); Hematocrit 37.3 % (37.0-47.0); Hemoglobin 11.5 g/dL (12.0-15.0); Immature Granulocyte Absolute 0.08 K/mm3 (0.00-0.031); Immature Granulocyte Percent A 0.7 % (0-0.5); Lymphocytes Absolute Auto 1.88 K/mm3 (0.9-3.2); Lymphocytes Percent Auto 16.6 % (18.3-44.2); Mean Corpuscular HGB Conc 30.8 g/dl (32-36); Mean Corpuscular Hemoglobin 24.1 pg (26-34); Mean Corpuscular Volume 78.2 fl (80-100); Mean Platelet Volume 10.5 fl (7.4-10.4); Monocytes Absolute Auto 0.5 K/mm3 (0.1-0.6); Neutrophils Absolute Auto 8.9 K/mm3 (1.3-6.7); Neutrophils Percent Auto 78.3 % (45.5-73.1); Platelet Count Result 302 k/mm3 (150-375); Red Blood Count 4.77 M/mm3 (4.2-5.4); Red Cell Distribution Width 16.7 % (11.5-14.5); White Blood Count 11.3 K/mm3 (4.5-10.0)
[2022-02-09 06:01] LABS: Glucose 100 mg/dL (65-110)
[2022-02-09] MEDS: fentaNYL CITRATE INJ (*CRX) 100 MCG/2 ML VIAL 50 MCG IV PUSH (06:18)
[2022-02-09] MEDS: LACTATED RINGERS 1,000 ML 125 ML IV CONT (06:51)
--- NOTE | 2022-02-09 07:23 | P.HP_ITS ---
H&P: HPI History of Present Illness Date/Time: 02/09/22 07:23 Chief Complaint: labor Narrative: Mahogany is a 21yo at 38.5 who presents with SROM and in labor. GBS neg. complicated by GDMA1 and obesity. Review of Systems Review of Systems: All systems reviewed & are unremarkable except as noted in HPI and below PMFSH Family History Family History Grandparent Diabetes mellitus Bone cancer Liver cancer Social History Social History Smoking status: Never smoker Second hand tobacco smoke exposure: Yes Substance use: never Spiritual care concerns: No Meds Home Medications and Allergies Home Medications Medication Instructions Recorded Confirmed Type prenat.vits,sp,[id number]-[id number] 1 tablet PO DAILY 03/03/21 02/09/22 History Allergies Allergy/AdvReac Type Severity Reaction Status Date / Time No Known Allergies Allergy Verified 01/23/22 13:47 Vital Signs Vital Signs - 24 hr 02/09/22 05:18 02/09/22 05:45 02/09/22 07:07 Temperature 97.1 F L Pulse Rate 78 Blood Pressure 118/57 L Pulse Oximetry 96 Oxygen Delivery Room Air 02/09/22 07:09 02/09/22 07:12 02/09/22 07:17 Temperature Pulse Rate 75 Blood Pressure 140/68 Pulse Oximetry 100 100 Oxygen Delivery 02/09/22 07:21 02/09/22 07:22 Temperature Pulse Rate 67 Blood Pressure 146/74 H Pulse Oximetry 100 Oxygen Delivery Exam Const: General: no acute distress Resp: Effort & Inspection: normal respiratory effort Auscultation: clear to auscultation bilaterally Cardio: Rate: regular rate Rhythm: regular rhythm GI: GI Palp: Yes Soft to palpation Extrem: General: normal to inspection H&P: Results Labs Labs: Short CBC 02/09/22 Range/Units 05:37 WBC 11.3 H (4.5-10.0) K/mm3 Hgb 11.5 L (12.0-15.0) g/dL Hct 37.3 (37.0-47.0) % Plt Count 302 (150-375) k/mm3 [facility] 02/09/22 05:37 Glucose 100 Assessment and Plan Assessment and plan (1) Active labor at term: Status: Acute Plan GBS neg active labor FHT category 1 anticipate
--- NOTE | 2022-02-09 08:25 | PM.OBPRVD ---
OB - Delivery Note Procedure Delivery date: 02/09/22 Procedure: Events: Gestational Diabetes Induction method: None Delivery monitor: External FHT and External Uterine Route of delivery: Laceration Description: None Quantitative Blood Loss (ml): 140 Disposition: Floor Narrative: With adequate expulsive efforts by the mother, the baby's head was delivered OA. The baby's anterior shoulder was delivered under the pubic symphysis without difficulty. The posterior shoulder and the rest of the baby delivered without difficulty. The infant was placed on the mothers chest and suctioned and stimulated. The cord was clamped and cut after 30 seconds. Mother and baby both stable. Baby Date of : 02/09/22 Time of : 08:10 Weeks of gestation at delivery: 38 Infant gender: Female Weight (pounds): 8 Weight (ounces): 5 presentation: vertex Placenta delivery description: Spontaneous Cord Vessel Description: 3 Vessels and Delayed Cord Clamping score one minute: 9 score five minutes: 9
[2022-02-09] MEDS: OXYTOCIN 30 UNITS/NS 500 ML 30 UNITS/500 ML BAG 125 UNITS IV CONT (08:52)
--- NOTE | 2022-02-09 09:11 | PM.OBPNVD ---
OB - PN: Subj Subjective Date/time seen: 02/09/22 09:11 Patient comments: no complaints, pain well controlled, incisional pain, tolerating diet and flatus present OB - PN: Obj Data Labs CBC & Chem 7: 02/09/22 05:37 02/09/22 05:37 Labs: Laboratory Results - last 24 hr 02/09/22 02/09/22 02/09/22 05:37 05:37 06:20 WBC 11.3 H RBC 4.77 Hgb 11.5 L Hct 37.3 MCV 78.2 L MCH 24.1 L MCHC 30.8 L RDW 16.7 H Plt Count 302 MPV 10.5 H Immature Gran % (Auto) 0.7 H Neut % (Auto) 78.3 H Lymph % (Auto) 16.6 L [place] % (Auto) 4.0 Eos % (Auto) 0.3 Baso % (Auto) 0.1 L Lymph # (Auto) 1.88 [place] # (Auto) 0.5 Eos # (Auto) 0.0 Baso # (Auto) 0.0 Abs Immat Gran (auto) 0.08 H Absolute Neuts (auto) 8.9 H Absolute Nucleated RBC 0.0 Nucleated RBC % 0.0 Glucose 100 Blood Type B Positive Antibody Screen Negative OB - PN A/P Plan day: 1 Plan: routine care Comments: No problems, routine care Time Spent With Patient Time: Total time spent is greater than 50% in coordination of care (as documented) at patient's floor/unit and/or counseling patient: Exam Const: General: comfortable, no acute distress and alert Resp: Effort & Inspection: normal respiratory effort Auscultation: no crackles, no rales and no rhonchi Cardio: Rate: regular rate Heart sounds: no click, no murmurs and no rubs GI: Inspection: non-distended GI Palp: No Tenderness to palpation present (GI) Auscultation: normal bowel sounds Other: Incision - CDI Extrem: General: normal to inspection, no pedal edema and no calf tenderness
[2022-02-09] MEDS: WITCH HAZEL 40 PADS 1 PAD TOPICAL (10:30)
[2022-02-09] MEDS: BENZOCAINE 20% AER SPR (*SP) 56 GM CAN 1 SPRAY TOPICAL (10:30)
--- NOTE | 2022-02-09 10:50 | OBPPTRN ---
Patient transferred to post room #290 via wheelchair. Support person present. Oriented to unit, room, information board, rooming in, admission packet and security measures. Patient verbalizes understanding.
[2022-02-09] MEDS: ACETAMINOPHEN 325 MG TABLET 650 MG PO (13:29)
[2022-02-09 15:00] LABS: Rapid Plasma Reagin Non-Reactive (NonReactive)
[2022-02-10 05:40] VITALS: BP 133/78; PULSE 67; RESP 16; TEMP 36.7; O2SAT 98
[2022-02-10] MEDS: DOCUSATE SODIUM 100 MG CAPSULE PO (06:39)
[2022-02-10] MEDS: ACETAMINOPHEN 325 MG TABLET 650 MG PO (06:39)
[2022-02-10] MEDS: IBUPROFEN 600 MG TABLET PO (06:40)
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
--- NOTE | 2022-02-10 06:57 | P.PNOB_ITS ---
OB - PN: Subj Subjective Date/time seen: 02/10/22 06:57 Patient comments: no complaints and pain well controlled baby status: doing well and bottle feeding well [place] feeding status: exclusively bottle feeding OB - PN: Obj Data Labs CBC & Chem 7: 02/09/22 05:37 02/09/22 05:37 Labs: Laboratory Results - last 24 hr 02/09/22 02/09/22 05:37 06:20 RPR Non-reactive Blood Type B Positive Antibody Screen Negative OB - PN A/P Assessment and Plan (1) , delivered: Code(s): O80 - Encounter for full-term uncomplicated delivery Status: Acute Plan day: 1 Plan: routine care Time Spent With Patient Time: Total time spent is greater than 50% in coordination of care (as documented) at patient's floor/unit and/or counseling patient: Time with patient: less than 15 minutes Exam Narrative: NAD abdomen soft, nontender, fundus firm below the umbilicus Extremities nontender, 1+ edema
--- NOTE | 2022-02-10 07:03 | PM.DS ---
DS: Admitting Diagnosis Discharge Date 01/10/22 Admitting Diagnosis labor at term DS: Discharge Diagnosis Discharge Diagnosis (1) , delivered: Code(s): O80 - Encounter for full-term uncomplicated delivery Status: Acute DS: Summary Hospital Course Hospital Course: Mahogany was admitted in active labor and proceeded to have an uncomplicated vaginal delivery and course and was discharged home on PPD1 in stable condition. Status at Discharge Functional status at discharge: independent ambulation Time Spent with Patient Time attestation: Total time spent providing and/or coordinating discharge services: Exam Narrative: NAD abdomen soft, appropriately tender Ext non tender, 1+ edema DS: Data Data Completed and Pending Labs on day of discharge: Labs from last 24 hours 02/09/22 02/09/22 06:20 05:37 RPR Non-reactive Blood Type B Positive Antibody Screen Negative Discharge Plan Discharge Attending physician on discharge: Dominique Mg Discharging Clinician: Dominique Mg Anticipated Discharge Date/Time: 02/10/22 12:00 Patient Disposition: Home, Self-Care Activity: pelvic rest Diet: regular Patient Instructions: Antibiotic Form Stand Alone Forms: General Discharge Information Follow-up/Referrals: Dominique Mg MD [Physician] - 4 Weeks Discharge Medications: Continued prenat.vits,sp,[id number] Tablet 1 tablet PO DAILY Date of admission: 02/09/22 04:40 Primary Care Provider: Jb,Mya Dejesus Admitting Provider: Dominique Mg Attending physician on admission: Dominique Mg Condition: Stable
--- NOTE | 2022-02-10 07:42 | WPDANLDPN2 ---
Anes-Prog Note L&D Date/Time: 02/10/22 07:42 Comfortable throughout: labor and delivery Neuraxial method: epidural Epidural/Spinal procedure site: tender Neuro status: Neuro function grossly intact. Cardiovascular status: normal Respiratory status: normal Airway patency: baseline Mental status: baseline Post-Op hydration status: normal Vital Signs: Last Vital Signs Temp 36.7 C 02/10/22 05:40 Pulse 67 02/10/22 05:40 Resp 16 02/10/22 05:40 BP 133/78 02/10/22 05:40 Pulse Ox 98 02/10/22 05:40 O2 Del Method Room Air 02/09/22 20:55 Pain score (VAS): 3 I/O: Intake & Output 02/09/22 02/09/22 02/10/22 15:59 23:59 07:59 Intake Total 500 Output Total 218 Balance 282 Post-procedural complaints: none Patient feedback: Patient satisfied with anesthetic care.
[2022-02-10 07:50] VITALS: BP 119/49; PULSE 65; RESP 18; TEMP 36.8; O2SAT 99
[2022-02-10 08:45] VITALS: BP 120/65; PULSE 75; RESP 19; TEMP 36.4; O2SAT 98; O2SAT 99
--- NOTE | 2022-02-10 12:45 | PC.NURSE ---
PT received discharge instructions per protocol and verbalized understanding of such care.
--- NOTE | 2022-02-10 13:28 | PC.NURSE ---
PT discharged to home ambulatory accompanied by infant and taken to waiting car. Follow up appts confirmed
[2022-02-12 11:47] VITALS: BP 121/53; PULSE 87; RESP 20; TEMP 36.9; O2SAT 100
== END 2022-02-10 13:28 | disposition home or self-care (01) | DRG 560 ==
LOC: ANHLDR 05:45 → ANHOB2 10:59
PROVIDERS: Admitting Provider Obstetrics & Gynecology; PCP Family Medicine; Visit Provider Obstetrics & Gynecology
DX: O24.429 Gestational diabetes mellitus in childbirth, unspecified control (principal); Z37.0 Single live birth; Z3A.38 38 weeks gestation of pregnancy
CPT/HCPCS: 36415; 82947; 84112; 85025; 86592; 86850; 86900; 86901; A9270; J2590; J2795; J3010; J7120

== ENCOUNTER 2023-12-02 10:47 | Outpatient (CLI) | payer OTHER, SELFPAY ==
--- NOTE | ~2023-12-02 | US_ITS ---
EXAMINATION: US OB BPP wo non-stress DATE: 12/02/2023 12:20 INDICATION: Third trimester with a circumvallate placenta. Assess for biophysical profile. TECHNIQUE: Real-time pelvic ultrasound was performed. The interpreting radiologist was not present fo r the study. COMPARISON: None. FINDINGS: There is a single living fetus in vertex presentation. The normal-appearing placenta is anterior and not low-lying.. heart rate is 138 beats per minute (bpm). Amniotic fluid volume is subjectivel y normal with normal deepest vertical pocket measuring 3.8 cm. Biophysical profile performed by the technologist: breathing (30 sec sustained breathing in 30 minutes): 2 out of 2 movement (3 gross body movements in 30 minutes): 0 out of 2 tone (one episode of cafghfc-dohfakyvv-irjzxww limb movement): 2 out of 2 Amniotic fluid pocket (2 cm): 2 out of 2 Total score: 6 out of 8 IMPRESSION: 1. Single living fetus in vertex presentation with heart rate of 138 bpm. 2. Biophysical profile 6 out of 8 with no points given for. movements are 30 minutes observati on. Per notation of the bike shop manager, 2 movements were observed over the course of 30 minutes, 3 observed over 40 minutes. Reviewed, dictated and finalized at location B. IMPRESSION: 1. Single living fetus in vertex presentation with heart rate of 138 bpm. 2. Biophysical profile 6 out of 8 with no points given for. movements ar e 30 minutes observation. Per notation of the bike shop manager, 2 movements we re observed over the course of 30 minutes, 3 observed over 40 minutes.
--- NOTE | 2023-12-02 11:05 | PC.NURSE ---
Pt had a reactive NST in the office, but they didn't have an U/S tech in the office to do a BPP on here. Pt here for BPP only.
--- NOTE | 2023-12-02 11:21 | PC.NURSE ---
Pt refused wheelchair ride to U/S. Pt ambulated to U/S accompanied by volunteer.
--- NOTE | 2023-12-02 12:27 | PC.NURSE ---
Fatou Chen CNM on unit and reviewed BPP results, pt may be discharged home.
== END 2023-12-02 12:30 | disposition home or self-care (01) ==
LOC: ANHOBOP 10:59 → ANHLDR 11:09
PROVIDERS: Visit Provider Advanced Practice Midwife
DX: Z34.90 Encounter for supervision of normal pregnancy, unspecified, unspecified trimester (principal); Z3A.00 Weeks of gestation of pregnancy not specified
CPT/HCPCS: 76819; 99199

== ENCOUNTER 2024-01-04 05:54 | Inpatient (IN) | payer OTHER, SELFPAY ==
[2024-01-04] VITALS (110 sets, daily range): BP systolic 104–150; BP diastolic 44–103; PULSE 63–111; RESP 16; TEMP 36.6–37.4; O2SAT 96–100; BMI 44.6
--- NOTE | 2024-01-04 06:36 | LDADM ---
This patient, Mahogany Burns, was admitted to Labor/Delivery/Recovery 104 on 01/04/24 at 05:54. Plans for labor, pain management and were discussed with patient. Patient/family oriented to hospital policies and general routines including ID bracelet, bed and alarms, visiting hours, pain management, procedures, bathroom and other care routines, personal items, smoking policy, room service/diet and guest tray routines, infant security routines, and visiting hours. Patient/Family are encouraged to report perceived risks to care and to ask questions if they do not understand what they are told or what they should do. See OBIX for further documentation.
[2024-01-04] MEDS: LACTATED RINGERS 1,000 ML 125 ML IV CONT ×2 (07:17→13:59)
[2024-01-04] MEDS: OXYTOCIN 30 UNITS/NS 500 ML 30 UNITS/500 ML BAG IV CONT (07:18)
[2024-01-04 07:44] LABS: Basophils Percent Auto 0.2 % (0.2-1.2); Eosinophils Absolute Auto 0.1 K/mm3 (0-0.3); Eosinophils Percent Auto 0.8 % (0-4.4); Hematocrit 36.4 % (37.0-47.0); Hemoglobin 11.6 g/dL (12.0-15.0); Immature Granulocyte Percent A 0.9 % (0-0.5); Lymphocytes Absolute Auto 1.95 K/mm3 (0.9-3.2); Lymphocytes Percent Auto 16.8 % (18.3-44.2); Mean Corpuscular HGB Conc 31.9 g/dl (32-36); Mean Corpuscular Hemoglobin 25.8 pg (26-34); Mean Corpuscular Volume 81.1 fl (80-100); Mean Platelet Volume 11.5 fl (7.4-10.4); Monocytes Absolute Auto 0.4 K/mm3 (0.1-0.6); Monocytes Percent Auto 3.7 % (2.6-8.5); Neutrophils Percent Auto 77.6 % (45.5-73.1); Platelet Count Result 259 k/mm3 (150-375); Red Blood Count 4.49 M/mm3 (4.2-5.4); Red Cell Distribution Width 15.9 % (11.5-14.5); White Blood Count 11.6 K/mm3 (4.5-10.0)
--- NOTE | 2024-01-04 07:44 | WPDOBADMIT ---
Obstetrics - Admit Note Admission Note: record reviewed. No pertinent additions to the history and/or any subsequent changes in the physical findings that are not consistent with the expected course of the were found. Additions to the history and/or subsequent changes in the physical findings follow. elective IOL, pitocin, anticipate vaginal delivery
[2024-01-04 08:19] LABS: Rapid Plasma Reagin Non-Reactive (NonReactive)
[2024-01-04 08:26] LABS: HIV 1/2 Ab P24 Ag Result Negative (Negative)
--- NOTE | 2024-01-04 11:25 | WPDANESEPP ---
Anes - Eval Pre Procedure Procedure: labor epidural Date/Time: 01/04/24 11:25 Preop Diagnosis: pain during labor Pre Op Diagnosis: IOL Patient Data Age: 23 Gender: F Height: 1.68 m Weight: 125.5 kg Last Vital Signs Temp 36.6 C 01/04/24 06:13 Pulse 86 01/04/24 11:01 BP 116/65 01/04/24 11:01 Pulse Ox 99 01/04/24 11:09 O2 Del Method Room Air 01/04/24 06:35 Allergies Allergy/AdvReac Type Severity Reaction Status Date / Time No Known Allergies Allergy Verified 12/07/23 14:11 Home Medications Medication Instructions Recorded Confirmed Type prenat.vits,sp,tzm-feqq-wpcbh 1 tablet PO DAILY 03/03/21 01/04/24 History clobetasol 0.05 % topical cream 1 applic topical BID 12/07/23 01/04/24 History clobetasol 0.05 % topical ointment 1 applic topical BID 12/07/23 01/04/24 History fluticasone propionate 50 2 spray intranasal DAILY #18 mL 12/07/23 01/04/24 Rx mcg/actuation nasal spray,suspension (Flonase Allergy Relief) Laboratory Tests 01/04/24 01/04/24 07:04 07:05 WBC 11.6 H K/mm3 (4.5-10.0) RBC 4.49 M/mm3 (4.2-5.4) Hgb 11.6 L g/dL (12.0-15.0) Hct 36.4 L % (37.0-47.0) MCV 81.1 fl (80-100) MCH 25.8 L pg (26-34) MCHC 31.9 L g/dl (32-36) RDW 15.9 H % (11.5-14.5) Plt Count 259 k/mm3 (150-375) MPV 11.5 H fl (7.4-10.4) Immature Gran % (Auto) 0.9 H % (0-0.5) Neut % (Auto) 77.6 H % (45.5-73.1) Lymph % (Auto) 16.8 L % (18.3-44.2) [place] % (Auto) 3.7 % (2.6-8.5) Eos % (Auto) 0.8 % (0-4.4) Baso % (Auto) 0.2 % (0.2-1.2) Lymph # (Auto) 1.95 K/mm3 (0.9-3.2) [place] # (Auto) 0.4 K/mm3 (0.1-0.6) Eos # (Auto) 0.1 K/mm3 (0-0.3) Baso # (Auto) 0.0 K/mm3 (0.0-0.1) Abs Immat Gran (auto) 0.10 H K/mm3 (0.00-0.031) Absolute Neuts (auto) 9.0 H K/mm3 (1.3-6.7) Absolute Nucleated RBC 0.000 K/mm3 (0.0-0.012) Nucleated RBC % 0.0 % (0.0-0.2) RPR Non-reactive (NonReactive) HIV 1&2 Ab/P24 Ag 4thGn Negative (Negative) Blood Type B Positive Antibody Screen Negative Patient hx anesthesia problems: none Family hx anesthesia problems: none Results Review: All pre-operative results and documents have been reviewed as part of the pre-operative evaluation. [facility] Past Medical History Medical History (Updated 01/04/24 @ 11:25 by Lucrecia Souza CRNA) Gestational diabetes Family History Family History Grandparent Diabetes mellitus Bone cancer Liver cancer Social History Social History Smoking status: Never smoker Second hand tobacco smoke exposure: Yes Substance use: never Do You Feel Safe in your Home?: Yes Lack of Transportation: No Lack of Food: Never True Current Housing: I Have Housing Concerned About Future Housing: No Difficulty Paying Gas/Electric Bills: No Difficulty Paying for Meds: No Currently Unemployed: No Education: High School Diploma/GED Difficulty w/ Childcare or Family Care: No Spiritual care concerns: No Exam Day of Procedure 01/04/24 11:25
--- NOTE | 2024-01-04 12:04 | PM.OBPNLAB ---
Pain Control Date/time seen: 01/04/24 12:04 Pelvic Exam Dilation (cm): 3 Effacement (%): 60 station: -2 Amniotic membrane status: Ruptured (AROM clear, odorless fluid)
--- NOTE | 2024-01-04 18:01 | P.PCNOB_ITS ---
OB - Vaginal Delivery Note Procedure Delivery date: 01/04/24 Induction method: AROM and Per Pitocin Protocol Delivery monitor: External FHT and External Uterine Route of delivery: Episiotomy description: None Laceration Description: None Specimen: No Quantitative Blood Loss (ml): 50 Anesthesia type: Epidural Disposition: Floor Complications: No immediate complications [place] Baby Date of : 01/04/24 Time of : 17:50 Gestational Age by Date: 39 gender: Male presentation: vertex position: Left Occiput Anterior Placenta delivery description: Spontaneous Cord Vessel Description: 3 Vessels (x2, loose)
[2024-01-04] MEDS: OXYTOCIN 30 UNITS/NS 500 ML 30 UNITS/500 ML BAG 125 UNITS IV CONT (18:19)
[2024-01-04] MEDS: ACETAMINOPHEN 325 MG TABLET 650 MG PO (21:19)
[2024-01-05 05:18] LABS: Hematocrit 34.7 % (37.0-47.0)
--- NOTE | 2024-01-05 07:43 | P.PNOB_ITS ---
OB - PN: Subj Subjective Date/time seen: 01/05/24 07:43 Interval history: pp day 1 doing well no complaints OB - PN: Obj Data Labs 01/05/24 04:40 Labs: Laboratory Results - last 24 hr 01/04/24 01/04/24 01/05/24 07:04 07:05 04:40 WBC 11.6 H RBC 4.49 Hgb 11.6 L 11.0 L Hct 36.4 L 34.7 L MCV 81.1 MCH 25.8 L MCHC 31.9 L RDW 15.9 H Plt Count 259 MPV 11.5 H Immature Gran % (Auto) 0.9 H Neut % (Auto) 77.6 H Lymph % (Auto) 16.8 L [place] % (Auto) 3.7 Eos % (Auto) 0.8 Baso % (Auto) 0.2 Lymph # (Auto) 1.95 [place] # (Auto) 0.4 Eos # (Auto) 0.1 Baso # (Auto) 0.0 Abs Immat Gran (auto) 0.10 H Absolute Neuts (auto) 9.0 H Absolute Nucleated RBC 0.000 Nucleated RBC % 0.0 RPR Non-reactive HIV 1&2 Ab/P24 Ag 4thGn Negative Blood Type B Positive Antibody Screen Negative OB - PN A/P Plan day: 1 Plan: routine care Time Spent With Patient Time: Total time spent is greater than 50% in coordination of care (as documented) at patient's floor/unit and/or counseling patient: Review of Systems Review of Systems: All systems reviewed & are unremarkable except as noted in HPI and below Exam Const: General: cooperative and healthy appearing Resp: Effort & Inspection: normal respiratory effort Skin: General skin exam: normal color Neuro: General: patient oriented x3
[2024-01-05 07:55] VITALS: BP 93/51; PULSE 72; RESP 18; TEMP 36.6; O2SAT 98
--- NOTE | 2024-01-05 09:42 | WPDANLDPN2 ---
Anes-Prog Note L&D Date/Time: 01/05/24 09:42 Comfortable throughout: labor and delivery Neuraxial method: epidural Epidural/Spinal procedure site: clean & non-tender Neuro status: Neuro function grossly intact. Cardiovascular status: normal Respiratory status: normal Airway patency: baseline Mental status: baseline Post-Op hydration status: normal Vital Signs: Last Vital Signs Temp 97.8 F 01/05/24 07:55 Pulse 72 01/05/24 07:55 Resp 18 01/05/24 07:55 BP 93/51 L 01/05/24 07:55 Pulse Ox 98 01/05/24 07:55 O2 Del Method Room Air 01/04/24 06:35 Pain score (VAS): 4 I/O: Intake & Output 01/04/24 01/05/24 01/05/24 23:59 07:59 15:59 Intake Total 1041.7 Output Total 375 Balance 666.7 Post-procedural complaints: none Patient feedback: Patient satisfied with anesthetic care.
[2024-01-05] MEDS: MULTIVIT/MIN/PREN/FOL AC/IRON TABLET 1 TAB PO (11:17)
[2024-01-05 12:08] VITALS: BP 121/65; PULSE 80; RESP 16; TEMP 36.8; O2SAT 98
--- NOTE | 2024-01-05 12:18 | PC.NURSE ---
1120. Met with patient to assess and discuss needs related to feeding. Mother states it is her intention to [combo feed]. Mother verbalized that baby has latched comfortably without difficulty and no pain. She reports that her ideal feeding plan would be to feed baby breastmilk from the breast and be able to bottle feed, or combo feed. Encouraged mother to breastfeed infant every 2-3 hours, watching for early feeding cues. If is sleepy, unwrap and place baby skin to skin. Discussed signs that is effectively , i.e. sufficient voids and stools, jaundice within normal limits, <10% weight loss from . Mother educated on milk production, supply and demand, and expectations for in the immediate period. Encouraged feeding on demand and feeding durations of 15 minutes or greater. Discussed breast/nipple care with good hand hygiene, signs of a correct latch, listening for infant swallows and documenting feedings on the feeding sheet. Mother instructed to call for assistance if infant will not feed every 3 hours, if there is discomfort with , or if mother has any other questions or concerns. resources provided including the Mom and Baby Guide. Mother verbalized understanding. Updated patient?s primary RN with education provided.
[2024-01-05 20:18] VITALS: BP 122/68; PULSE 84; RESP 16; TEMP 36.7; O2SAT 98
[2024-01-06] MEDS: MULTIVIT/MIN/PREN/FOL AC/IRON TABLET 1 TAB PO (07:57)
[2024-01-06 08:00] VITALS: PULSE 72; RESP 16; O2SAT 99
[2024-01-06 08:20] VITALS: BP 98/63; PULSE 72; RESP 16; TEMP 37.3; O2SAT 99
--- NOTE | 2024-01-06 10:27 | PC.NURSE ---
Patient was given the opportunity to view the discharge video Mother & Baby Care, The First Two Weeks and to ask questions. Patient declined viewing the video and has been given the mother/baby guide for home reference.
--- NOTE | 2024-01-06 10:45 | PC.NURSE ---
Consulted with mother concerning needs and she shared her ability to independently latch infant optimally without pain. Mother is feeding appropriately for growth of infant and understands stimulating to eat if needed. Infant has had appropriate feedings in the last 24 hours meets the outcomes for weight, output, blood sugar and jaundice at this time. Reinforced understanding of milk production, transition of milk, signs of adequate intake, transition of stool, prevention/relief of engorgement, plugged ducts, mastitis, responsive watching for feeding cues, the different methods of stimulating infant to breastfeed 1-3 hours after the start of the last feeding, community resources, and when to call a provider using the resource of the feeding sheet along with the mom and baby guide. Mother is combo feeding with Enfamil formula along with . Infant tolerates formula well. Mother voiced understanding of the information shared, is confident to continue effectively her infant at home, when to call for assistance, denies any additional assistance or education at this time. Reported to the Primary RN.
--- NOTE | 2024-01-06 12:00 | PM.OBPNVD ---
OB - PN: Subj Subjective Date/time seen: 01/06/24 12:00 Interval history: pp day 2 doing well no complaints ready to discharge home OB - PN: Obj Data Labs 01/05/24 04:40 OB - PN A/P Assessment and Plan (1) (spontaneous vaginal delivery): Code(s): O80 - Encounter for full-term uncomplicated delivery Status: Acute Plan day: 2 Plan: routine care, discharge home and follow up 6 weeks Time Spent With Patient Time: Total time spent is greater than 50% in coordination of care (as documented) at patient's floor/unit and/or counseling patient: Review of Systems Review of Systems: All systems reviewed & are unremarkable except as noted in HPI and below Exam Const: General: cooperative and healthy appearing Resp: Effort & Inspection: normal respiratory effort Skin: General skin exam: normal color Neuro: General: patient oriented x3
[2024-01-07 10:23] VITALS: BP 116/69; PULSE 82; RESP 18; TEMP 37.1; O2SAT 100
--- NOTE | 2024-01-09 12:00 | PM.OBDSVD ---
DS: Admitting Diagnosis Discharge Date 01/06/24 Admitting Diagnosis IOL DS: Discharge Diagnosis Discharge Diagnosis (1) (spontaneous vaginal delivery): Code(s): O80 - Encounter for full-term uncomplicated delivery Status: Acute OB - DS: Summary OB Procedures : None OB Procedures Intrapartum: Spontaneous Vag Delivery OB Procedures: : None Peripartum Data Laceration Description: None Episiotomy description: None Time Spent with Patient Time attestation: Total time spent providing and/or coordinating discharge services: Discharge Plan Discharge Attending physician on discharge: Troy Barney Consulting providers: Misha Hummel; Yoselin Chen; Lucrecia Souza; Alysha Barnett Discharging Clinician: Yoselin Chen Patient Disposition: Home, Self-Care Activity: pelvic rest Diet: regular Discharge Instructions: Education: Mom and Baby Guide Given to: Mother Follow-Up: Call your delivering provider's office for an appointment to be seen in: 4 Weeks Mom and baby should come to the [facility] for the follow-up appointment. Appointment Date/Time: Sunday, January 07, 2024 at 10:00 a.m. What to expect at your follow-up visit: Blood Pressure Check Physical Assessment Call [phone] if you are unable to keep your appointment time. BREAST CARE: * Wear a snug supportive bra. * For engorgement discomfort: Breast Feeding: * Apply warm moist washcloths * Express milk as needed to relieve engorgement * Wear loose clothing Bottle Feeding: * May apply ice packs * For sore nipples: * Identify correct latch-on * Apply warm moist washcloths before and after nursing * Air dry nipples after nursing * May apply Lansinoh cream to nipples EPISIOTOMY/PERINEAL CARE: * Until bleeding stops, use your raul bottle after urinating * Change your pad frequently throughout the day * You may take sitz baths several times a day (fill your bathtub with warm water and soak for 20 minutes.) Do NOT bathe in the water * No tub baths until seen by your physician - You may shower ACTIVITY: * Rest as much as possible. * Do not exercise or lift anything heavier than your baby (such as laundry or other children.) * Avoid stairs or driving as much as possible. * Do not put anything into the vagina. No douching, tampons, or sexual activity until seen by physician. NOTIFY PHYSICIAN IF YOU HAVE ANY QUESTIONS OR IF ANY OF THE FOLLOWING SYMPTOMS OCCUR: * If your vaginal bleeding becomes foul smelling. * If your vaginal bleeding becomes more heavy than a period or if your bleeding changes from pink to bright red. However, you may pass an occasional walnut-sized clot once or twice for the first week . * If you experience a sharp, shooting pain in you calves. * If you discover a hard, reddened area on your breast or if you experience flu-like symptoms. DIET: * Eat regular, well-balanced meals. * Drink plenty of fluids daily. If , drink to thirst. Stand Alone Forms: General Discharge Information Follow-up/Referrals: Yoselin Chen CNM [Certified Nurse Recreation Attendant Supervisor] - 4 Weeks Discharge Medications: New ibuprofen 600 mg Tablet 600 mg PO Q6H PRN (Reason: Cramping) Qty: 30 0RF Continued clobetasol 0.05 % cream 1 applic topical BID clobetasol 0.05 % ointment 1 applic topical BID fluticasone propionate [Flonase Allergy Relief] 50 mcg/actuation spray,suspension 2 spray intranasal DAILY Qty: 18 3RF Rx Instructions: administer into each nostril b.i.d. prenat.vits,sp,kmo-gyvy-ajtqp Tablet 1 tablet PO DAILY Date of admission: 01/04/24 05:54 Primary Care Provider: Anival Ling Admitting Provider: Troy Barney Attending physician on admission: Troy Barney Condition: Stable
== END 2024-01-06 14:00 | disposition home or self-care (01) | DRG 560 ==
LOC: ANHLDR 05:58 → ANHOB2 20:28
PROVIDERS: Admitting Provider Obstetrics & Gynecology; PCP Family Medicine; Referring Provider Advanced Practice Midwife; Visit Provider Obstetrics & Gynecology
DX: O43.113 Circumvallate placenta, third trimester (principal); Z37.0 Single live birth; Z3A.39 39 weeks gestation of pregnancy; O69.81X0 Labor and delivery complicated by cord around neck, without compression, not applicable or unspecified
CPT/HCPCS: 36415; 85014; 85018; 85025; 86592; 86703; 86850; 86900; 86901; A9270; G0432; J2590; J2795; J7120

== ENCOUNTER 2024-03-07 01:29 | Day surgery (SDC) | payer OTHER, SELFPAY ==
--- NOTE | 2024-02-23 13:41 | SUR.PREOP ---
Report to the Outpatient Waiting Room, entrance under the green pavilion located off [facility], at time _0600_ on date _03/07/2024_. Planned Procedure Time: _0730_.? Time changes happen often and if your time is changed the preop area will call you the afternoon before. - You and your visitor will be asked to self-screen and do not enter if you have any COVID symptoms. Please call surgeon if you need to reschedule. - A mask is optional within the hospital at this time. Patients may have clear liquids (water, carbonated beverages, clear teas, apple juice) until 3 hours prior to surgery with a maximum of 20 ounces. - No food from midnight until time of surgery and no smoking - Infants may have breast milk until 4 hours before surgery, formula 6 hours prior to surgery. - Children will be allowed to drink immediately following surgery.? If applicable, please bring a bottle or sippy cup to assist with drinking. Juice, water, soda, and popsicles are readily available.? For infants on formula, please bring formula the day of surgery.? Pacifiers are allowed. Take only the following medications with a SIP of water on the morning of surgery: _NA__ DO NOT STOP ANY OF YOUR OTHER PRESCRIPTION MEDICATIONS PRIOR TO SURGERY EXCEPT THE FOLLOWING Medications to discontinue per physician ___NA___ Date to take last dose_NA_ Please no make-up, nail tajik, hairspray, perfume, deodorant, or body powder the day of surgery.? No jewelry (including any body piercings) or valuables the day of surgery, leave them at home.? Please take a shower or bath the night before, or the morning of, surgery with an antibacterial soap.? Wear comfortable, loose fitting clothing.? Children are encouraged to wear pajamas. - Jewelry must be removed prior to entering the operating room.? Rings and piercings that are not removed may be cut off. - The hospital will not accept responsibility for valuables.? - Please leave all valuables, including medications, at home the day of surgery. If you are going home after surgery, a licensed hyster driver must drive you home.? - NO public transportation without another adult if you receive anesthesia. - We recommend that an adult stay with you for 24 hours following discharge. - We also recommend that you do not drive, make important decision, drink alcoholic beverages, or take any drugs that were not prescribed by your health care provider for at least 24 hours after your discharge time. For Pediatric surgeries, we recommend two adults accompany the child home. Follow any additional instructions given to you from your surgeon. Telephone instructions given to _Mahogany_and asked if any additional questions and then verbalized understanding. Patient advised to call surgeon office or pre surgery nurse liaison [phone] if any additional questions.
[2024-02-23 13:53] VITALS: BMI 44.9
[2024-03-07] VITALS (7 sets, daily range): BP systolic 108–126; BP diastolic 51–84; PULSE 58–85; RESP 13–20; TEMP 36.1–36.6; O2SAT 98–100; BMI 45.8
--- NOTE | 2024-03-07 07:16 | WPDHPUPDATE1 ---
History and Physical Update Update Date/Time: 03/07/24 07:16 History and Physical has been reviewed, including an updated exam of the patient. There are NO changes in the patient's condition. Risks, benefits, and alternatives have been discussed and questions answered. Patient agrees to proceed with procedure.
[2024-03-07] MEDS: LACTATED RINGERS 1,000 ML 30 ML IV CONT (07:18)
[2024-03-07] MEDS: KETOROLAC 15 MG/ML VIAL (*BKC) IV PUSH (07:19)
[2024-03-07] MEDS: ACETAMINOPHEN 500 MG TABLET 1000 MG PO (07:19)
--- NOTE | 2024-03-07 07:20 | WPDANESEPPF ---
Anes - Initial Pre Proc Eval Procedure: Operation Date: 03/07/24 07:30 Proposed Procedures p Laparoscopic Bilateral Salpingectomy - Troy Barney MD Date/Time: 03/07/24 07:20 Surgeon: Troy Barney MD Pre Op Diagnosis: female sterilization Patient Data Age: 23 Gender: F Height: 1.65 m Weight: 124.8 kg Last Vital Signs Temp 97 F L 03/07/24 07:14 Pulse 75 03/07/24 07:14 BP 118/65 03/07/24 07:14 Pulse Ox 99 03/07/24 07:14 O2 Del Method Room Air 03/07/24 07:14 Allergies Allergy/AdvReac Type Severity Reaction Status Date / Time No Known Allergies Allergy Verified 02/23/24 13:49 Home Medications Medication Instructions Recorded Confirmed Type clobetasol 0.05 % topical cream 1 applic topical BID 12/07/23 02/23/24 History clobetasol 0.05 % topical ointment 1 applic topical BID 12/07/23 02/23/24 History Patient hx anesthesia problems: none Family hx anesthesia problems: none Results Review: All pre-operative results and documents have been reviewed as part of the pre-operative evaluation. [facility] Past Medical History Medical History (Updated 01/06/24 @ 12:01 by Misha Hummel MD) Gestational diabetes Family History Family History Grandparent Diabetes mellitus Bone cancer Liver cancer Social History Social History Smoking status: Never smoker Second hand tobacco smoke exposure: No Alcohol intake: current Alcohol use details: OCCASIONAL Substance use: never Substance use type: does not use Do You Feel Safe in your Home?: Yes Lack of Transportation: No Lack of Food: Never True Current Housing: I Have Housing Concerned About Future Housing: No Difficulty Paying Gas/Electric Bills: No Difficulty Paying for Meds: No Currently Unemployed: No Education: High School Diploma/GED Difficulty w/ Childcare or Family Care: No Living arrangements: with family Additional living arrangements comments: with 3 children Spiritual care concerns: No Anes - Eval Final PreProcedure Day of Procedure 03/07/24 07:20 Patient weight: morbidly obese Heart: regular rate and rhythm Lungs: clear to auscultation Airway: Mallampati scale class III Neurological: alert and oriented Last oral intake: >/= 8 hours ASA classification: III Emergent: no Anesthetic plan: proceed Anesthesia type and monitoring: general ETT and standard monitoring Results Review: All pre-operative results and documents have been reviewed as part of the pre-operative evaluation. Informed Consent: The patient's anesthetic plan and its attendant risks and benefits were discussed with the patient/family/POA. Questions were solicited and answers provided to the satisfaction of the patient/family/POA.
[2024-03-07 07:21] LABS: BEDSIDEPREGUCG Negative (Negative)
--- NOTE | 2024-03-07 08:44 | P.OP_ITS ---
Procedure Note - Detailed Date of Procedure 03/07/24 Pre-op Diagnosis female sterilization Post-op Diagnosis Same Procedure Performed Laparoscopic bilateral salpingectomy Surgeon Troy Barney MD Anesthesia General Indications Unwanted fertility Findings Normal pelvic anatomy Description of Procedure The patient was taken the operating room. She was prepped and draped in the dorsal lithotomy position after induction of general anesthesia. A 5 mm skin incision was made in the left upper quadrant of the abdominal skin. A 5 mm trocar was inserted the intra-abdominal cavity under direct visualization of the scope. Pneumoperitoneum was achieved. A 5 mm trocar was inserted in the left lower quadrant identical fashion. A 5 mm infraumbilical trocar was inserted in identical fashion as well. The bilateral fallopian tubes were removed. This was done by using a LigaSure cautery. The mesosalpinx adjacent to the tube was cauterized transected with LigaSure. This was initiated in the area the ovary and in a stepwise fashion moved medially to the area of the cornu of the uterus. Once there the fallopian tube was cauterized and transected. This was done in identical fashion on each side. The fallopian tubes were taken out through the left lower quadrant trocar site. The pneumoperitoneum was reduced. The trocars removed. The skin was closed with subcuticular 4 Monocryl and covered with [place] rmabond. She was taken to cover stable condition. Sponge lap and needle counts were correct x2. Estimated Blood Loss 5 Drains No Packing No Pathology Yes Complications No immediate complications Condition Stable Disposition PACU
== END 2024-03-07 09:55 | disposition home or self-care (01) ==
PROVIDERS: PCP Family Medicine; Visit Provider Obstetrics & Gynecology
PROC: (CPT 49320; principal; 2024-03-07 07:30)
DX: Z30.2 Encounter for sterilization (principal); E66.01 Morbid (severe) obesity due to excess calories; Z68.42 Body mass index [BMI] 45.0-49.9, adult
CPT/HCPCS: 58661; 88302; A9270; J1100; J1885; J2003; J2250; J2405; J2704; J3010; J7120

== ENCOUNTER 2024-05-10 08:34 | Outpatient (CLI) | payer OTHER, SELFPAY ==
--- NOTE | ~2024-05-10 | CT_ITS ---
EXAMINATION: CT sinus wo con DATE: 05/10/2024 08:51 INDICATION: Other polyp of sinus. TECHNIQUE: Computed tomography (CT) of the paranasal sinuses was performed without intravenous contra st. Iterative reconstruction technique was employed. The dose-length product was 288.76 mGy-cm. COMPARISON: None FINDINGS: The frontal, ethmoid, sphenoid, and maxillary sinuses are clear. The ostiomeatal units are patent. There is rightward deviation of the nasal septum. There is vargas bullosa involving the bilat eral middle turbinates. IMPRESSION: 1. Rightward deviation of the nasal septum. Reviewed, dictated and finalized at location A. RECOVERY OPERATOR
== END 2024-05-10 08:35 | disposition home or self-care (01) ==
PROVIDERS: PCP Family Medicine; Visit Provider Otolaryngology
DX: J34.2 Deviated nasal septum (principal); J33.8 Other polyp of sinus; J34.89 Other specified disorders of nose and nasal sinuses; R04.0 Epistaxis
CPT/HCPCS: 70486

== ENCOUNTER 2024-10-03 01:05 | Day surgery (SDC) | payer OTHER, SELFPAY ==
[2024-09-18 17:31] VITALS: BMI 46.4
--- NOTE | 2024-09-18 17:36 | SUR.PREOP ---
Report to the Outpatient Waiting Room, entrance under the green pavilion located off [facility], at time _1300_ on date _10/03/2024_. Planned Procedure Time: _1500_.? Time changes happen often and if your time is changed the preop area will call you the afternoon before. - You and your visitor will be asked to self-screen and do not enter if you have any COVID symptoms. Please call surgeon if you need to reschedule. - A mask is optional within the hospital at this time. Patients may have clear liquids (water, carbonated beverages, clear teas, apple juice) until 3 hours (1200) prior to surgery with a maximum of 20 ounces. - No food from midnight until time of surgery and no smoking, or chewing tobacco (or any form of nicotine). No chewing gum, candy or mints. Take only the following medications with a SIP of water on the morning of surgery: _NA_ DO NOT STOP ANY OF YOUR OTHER PRESCRIPTION MEDICATIONS PRIOR TO SURGERY EXCEPT THE FOLLOWING Hold all vitamins and supplements for 3 days per anesthesiologist. Medications to discontinue per physician __NA__ Date to take last dose_NA_ Please no make-up, nail lebanese, hairspray, perfume, deodorant, or body powder the day of surgery.? No jewelry (including any body piercings) or valuables the day of surgery, leave them at home.? Please take a shower or bath the night before, or the morning of, surgery with an antibacterial soap.? Wear comfortable, loose fitting clothing. - Jewelry must be removed prior to entering the operating room.? Rings and piercings that are not removed may be cut off. - The hospital will not accept responsibility for valuables.? - Please leave all valuables, including medications, at home the day of surgery. If you are going home after surgery, a licensed class a truck driver must drive you home.? - NO public transportation without another adult if you receive anesthesia. - We recommend that an adult stay with you for 24 hours following discharge. - We also recommend that you do not drive, make important decision, drink alcoholic beverages, or take any drugs that were not prescribed by your health care provider for at least 24 hours after your discharge time. Follow any additional instructions given to you from your surgeon. Telephone instructions given to _Mahogany_and asked if any additional questions and then verbalized understanding. Patient advised to call surgeon office or pre surgery nurse liaison [phone] if any additional questions.
--- OUTSIDE RECORDS SUMMARY | 2024-10-03 01:10 | XMS_ITS | Clinical Summary ---
Author Organization [facility] Address [address] [place] [address] Care Team Providers Care User Interface Designer Name Role Phone Unavailable Primary Care Provider Unavailabl e Source Comments [facility],non-owned Affiliates and Associated Physician Practices is amultiple site organization consisting of ambulatory clinics and hospital sitesin [place], [place], [place]. This disclosure is being madepursuant to the Care Everywhere program and may not contain all information available regarding this patient. 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 Gender Identity Not on file Sexual Orientation Not on file Plan of Treatment Health Maintenance Due Date Last Done Comments PAP SMEAR 1998 HPV VACCINE (1 - 3-dose series) 2013 HEPATITIS C SCREENING 12/11/2016 DTAP/TDAP/TD VACCINES (1 - Tdap) 2017 HEPATITIS B VACCINE (1 of 3 - 19+ 3-dose series) 2017 COVID-19 VACCINE ( - 2023-2 5 season) 2024 DEPRESSION SCREENING 05/30/2024 CHLAMYDIA/GONORRHEA SCREENING 06/01/2024, 06/01/2023 INFLUENZA VACCINE (Season Ended) 2025 03/11/2021, 03/05/2019, 02/02/2018 ZOSTER VACCINE (1 of 2) 2048 HIV SCREENING Completed 06/29/2023, 06/01/2023 HIB VACCINE Aged Out No longer eligi ble based on patient's age to complete this topic MENINGOCOCCAL (Group B) VACCINE SHARED DECISION-MAKING Aged Out No longer eligible based on patient's age to complete this topic MENINGOCOCCAL GROUPS A/C/Y/W VACCINE Aged Out No longer eligible b ased on patient's age to complete this topic PNEUMOCOCCAL VACCINE Aged Out No long er eligible based on patient's age to complete this topic Insurance [facility] SELF PAY NO INSURANCE Member Subscriber Plan / Payer (Ef fective for All Dates) Name:Mahogany Rg Member ID:Not on file Relation to Subscriber:Not on file Name:MAHOGANY RG Subscriber ID:Not on file (Home) Address: [address] [place] [id number] Payer ID:Not on file Group ID:Not on file Type:Self Pay Address: [place], [place]
--- OUTSIDE RECORDS SUMMARY | 2024-10-03 01:10 | XMS_ITS | Data Portability ---
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 self breast examination; Encourage regular exercise; Encourage no tobacco useNotes:pap up t o date Yoselin Chen CNM [address], [place], [address], [facility] 08/01/2024 17:02:10 08/17/2024 text/html This patient is a 23-year-old female presents for heavy vaginal bleeding. She has longstanding very heavy bleeding. Her menses are regular. However, they require double protection. Patient has accidents, getting blood on her bedding and clothing. Is affected work. She changes a pad or tampon every hour. She leaks blood around the pad and tampon. This bleeding has a profound impact on her quality of life and her activities of daily living. we discussed treatment options. Patient has failed to medical treatment options including control pills and Depo shot. She also has a problem with weight gain. we discussed endometrial ablation hysterectomy. She would like to proceed with endometrial ablation. I spent over 30 minutes with the patient and on her care in total. We agreed to proceed with endometrial ablation at the hospital. Troy Barney MD [address], [place], [address], [facility] 08/17/2024 10:34:56 OBGyn Episode Ob Episode Information Episode Created Date Number of Fetuses Patient Bloodtype Patient rh Status Prepregnancy Weight lbs Domestic Partner Domestic Partner Phone Father Name Clinical Training Specialist Status 09/13/19 21 1 B Positive 267 CLOSED Fetus Data First Name Last Name Admitted to NICU Weight (g) Sex Living Outcome Pediatric Complications Fetus ID Race Codes Race Delivery Type Luke guzmán 3628.73 6 F true Full Term 9151 Vaginal Delivery Problems Problem Notes declines COVID vaccine Problem Name Start Date End Date Resolution Snomed Code Not e Maternal obesity complicating , childbirth and the puerperium, antepartum 09/12/2020 [id number] 40+ BMI - 34 we ek weekly testing Gestational diabetes mellitus [id number] 32 wk testing, checking BS QID Gestational diabetes mellitus class A1 02/10/2021 [id number] Cystic fibrosis [id number] +CAR RIER / FOB neg Petr Calculation Initial Petr Date Initial Exam Date Initial Exam Provider Initial Ultrasound Date Last Menstrual Period Date Ultra Sound Weeks Gestation 03/21/2021 09/12/2020 08/28/2020 06/14/2020 11 Eighteen To Twenty Week Petr Update Ultra Sound Date Fundal Height At Umbil Quickening Date Ultra Sound Latest Weeks Gestation Final Petr Confirmed By Final Petr Confirmed Date Final Petr Date Ultra Sound Latest Days Gestation 0 [email or web address] 09/12/2020 03/21/20 21 0 Pre- Flowsheet Flowsheet Date 09/12/2020 Sharma Score Blood Edema Fundus Height Fundus Units Glucose Ketones Leukocytes Nitrite Labor Signs Protein Cervic Dilation Cervic Effacement Cervic Station neg none trace Type Weight in lbs Pre/Post Dialysis Refused Weight 263.494170071399 BP Diastolic BP Location Tested BP Systolic BP Type 75 111 Fetus Heart Rate Present A 160 Fetus Movement A No Comments 23yo G1 at 12w6d by LMP for PNC. US today cw dating, NB and NT normal. had NIPT low risk. Discussed care, dating, risks of obesity in , testing at 32 weeks. Flowsheet Date 10/10/2020 Sharma Score Blood Edema Fundus Height Fundus Units Glucose Ketones Leukocytes Nitrite Labor Signs Protein Cervic Dilation Cervic Effacement Cervic Station neg none trace Type Weight in lbs Pre/Post Dialysis Refused Weight 261.58349759453 BP Diastolic BP Location Tested BP Systolic BP Type 82 125 Fetus Heart Rate Present Fetus Movement A No Comments PATIENT STATES THAT HAVING S OME DISCHARGE, reviewed precautions, f/u 4 weeks anatomy scan FHR by us Flowsheet Date 10/10/2020 Sharma Score Blood Edema Fundus Height Fundus Units Glucose Ketones Leukocytes Nitrite Labor Signs Protein Cervic Dilation Cervic Effacement Cervic Station Type Weight in lbs Pre/Post Dialysis Refused BP Diastolic BP Location Tested BP Systolic BP Type Fetus Heart Rate Present Fetus Movement Comments Flowsheet Date 11/07/2020 Sharma Score Blood Edema Fundus Height Fundus Units Glucose Ketones Leukocytes Nitrite Labor Signs Protein Cervic Dilation Cervic Effacement Cervic Station Type Weight in lbs Pre/Post Dialysis Refused BP Diastolic BP Location Tested BP Systolic BP Type Fetus Heart Rate Present Fetus Movement Comments Flowsheet Date 11/07/2020 Sharma Score Blood Edema Fundus Height Fundus Units Glucose Ketones Leukocytes Nitrite Labor Signs Protein Cervic Dilation Cervic Effacement Cervic Station Type Weight in lbs Pre/Post Dialysis Refused Weight 258.539496054447 BP Diastolic BP Location Tested BP Systolic BP Type 70 103 Fetus Heart Rate Present Fetus Movement Comments anatomy scan, incomplete f/u 4 weeks with rpt us, precautions reviewed Flowsheet Date 12/08/2020 Sharma Score Blood Edema Fundus Height Fundus Units Glucose Ketones Leukocytes Nitrite Labor Signs Protein Cervic Dilation Cervic Effacement Cervic Station Type Weight in lbs Pre/Post Dialysis Refused BP Diastolic BP Location Tested BP Systolic BP Type Fetus Heart Rate Present Fetus Movement Comments Flowsheet Date 12/08/2020 Sharma Score Blood Edema Fundus Height Fundus Units Glucose Ketones Leukocytes Nitrite Labor Signs Protein Cervic Dilation Cervic Effacement Cervic Station neg none 30 trace Type Weight in lbs Pre/Post Dialysis Refused Weight 260.976085589649 BP Diastolic BP Location Tested BP Systolic BP Type 74 117 Fetus Heart Rate Present A 150 Fetus Movement A Yes Comments Doing well. No concerns. US today anatomy now complete and wnl. Growth 84%. GCT next, discussed, will discuss Tdap next visit. testing to start at 32 weeks for obesity, pt aware. Flowsheet Date 12/29/2020 Sharma Score Blood Edema Fundus Height Fundus Units Glucose Ketones Leukocytes Nitrite Labor Signs Protein Cervic Dilation Cervic Effacement Cervic Station neg none 30 trace Type Weight in lbs Pre/Post Dialysis Refused Weight 263.001265344312 BP Diastolic BP Location Tested BP Systolic BP Type 74 108 Fetus Heart Rate Present A 140 Fetus Movement A Yes Comments Doing well. GCT today. RH ne g. Discussed and encouraged Tdap. Flowsheet Date 01/06/2021 Sharma Score Blood Edema Fundus Height Fundus Units Glucose Ketones Leukocytes Nitrite Labor Signs Protein Cervic Dilation Cervic Effacement Cervic Station Type Weight in lbs Pre/Post Dialysis Refused BP Diastolic BP Location Tested BP Systolic BP Type Fetus Heart Rate Present Fetus Movement Comments Flowsheet Date 01/13/2021 Sharma Score Blood Edema Fundus Height Fundus Units Glucose Ketones Leukocytes Nitrite Labor Signs Protein Cervic Dilation Cervic Effacement Cervic Station 36 trace Type Weight in lbs Pre/Post Dialysis Refused Weight 264.457552616829 BP Diastolic BP Location Tested BP Systolic BP Type 75 R arm 111 sitting Fetus Heart Rate Present A 145 Fetus Movement A Yes Comments Size greater than dates - US , BLood glucose well controlled Flowsheet Date 01/15/2021 Sharma Score Blood Edema Fundus Height Fundus Units Glucose Ketones Leukocytes Nitrite Labor Signs Protein Cervic Dilation Cervic Effacement Cervic Station Type Weight in lbs Pre/Post Dialysis Refused BP Diastolic BP Location Tested BP Systolic BP Type Fetus Heart Rate Present Fetus Movement Comments Flowsheet Date 01/30/2021 Sharma Score Blood Edema Fundus Height Fundus Units Glucose Ketones Leukocytes Nitrite Labor Signs Protein Cervic Dilation Cervic Effacement Cervic Station neg trace 36 trace Type Weight in lbs Pre/Post Dialysis Refused Weight 264.537602445917 BP Diastolic BP Location Tested BP Systolic BP Type 72 111 Fetus Heart Rate Present A 140 Fetus Movement A Yes Comments Doing well. testin g scheduled to start next visit. Sugars overall good except a few pp (dietary indescretions). Has appt for Tdap next week. Discussed and ENcouraged COVID vaccine, also. Flowsheet Date 02/10/2021 Sharma Score Blood Edema Fundus Height Fundus Units Glucose Ketones Leukocytes Nitrite Labor Signs Protein Cervic Dilation Cervic Effacement Cervic Station Type Weight in lbs Pre/Post Dialysis Refused BP Diastolic BP Location Tested BP Systolic BP Type Fetus Heart Rate Present Fetus Movement Comments Flowsheet Date 02/10/2021 Sharma Score Blood Edema Fundus Height Fundus Units Glucose Ketones Leukocytes Nitrite Labor Signs Protein Cervic Dilation Cervic Effacement Cervic Station Type Weight in lbs Pre/Post Dialysis Refused BP Diastolic BP Location Tested BP Systolic BP Type Fetus Heart Rate Present Fetus Movement Comments Flowsheet Date 02/10/2021 Sharma Score Blood Edema Fundus Height Fundus Units Glucose Ketones Leukocytes Nitrite Labor Signs Protein Cervic Dilation Cervic Effacement Cervic Station neg trace 38 trace Type Weight in lbs Pre/Post Dialysis Refused Weight 266.060293039071 BP Diastolic BP Location Tested BP Systolic BP Type 76 118 Fetus Heart Rate Present A 140 Fetus Movement A Yes Comments Doing well. Fastings all 74- 90, very rare elevated pp. NRNST today, but BPP 8/8, normal fluid. Tdap is done. Undecided re COVID vaccine. Flowsheet Date 02/17/2021 Sahrma Score Blood Edema Fundus Height Fundus Units Glucose Ketones Leukocytes Nitrite Labor Signs Protein Cervic Dilation Cervic Effacement Cervic Station Type Weight in lbs Pre/Post Dialysis Refused BP Diastolic BP Location Tested BP Systolic BP Type Fetus Heart Rate Present Fetus Movement Comments Flowsheet Date 02/17/2021 Sharma Score Blood Edema Fundus Height Fundus Units Glucose Ketones Leukocytes Nitrite Labor Signs Protein Cervic Dilation Cervic Effacement Cervic Station Type Weight in lbs Pre/Post Dialysis Refused BP Diastolic BP Location Tested BP Systolic BP Type Fetus Heart Rate Present Fetus Movement Comments Flowsheet Date 02/17/2021 Sharma Score Blood Edema Fundus Height Fundus Units Glucose Ketones Leukocytes Nitrite Labor Signs Protein Cervic Dilation Cervic Effacement Cervic Station trace 36 trace Type Weight in lbs Pre/Post Dialysis Refused Weight 270.86270496189 BP Diastolic BP Location Tested BP Systolic BP Type 76 122 Fetus Heart Rate Present A 142 Fetus Movement A Yes Comments Doing well. 2 elevated fbs. Pt works late shift and is often not home until midnight. Her fasting is sometimes early. Discussed adjusting diet and monitoring based on her schedule. Flowsheet Date 02/24/2021 Sharma Score Blood Edema Fundus Height Fundus Units Glucose Ketones Leukocytes Nitrite Labor Signs Protein Cervic Dilation Cervic Effacement Cervic Station Type Weight in lbs Pre/Post Dialysis Refused BP Diastolic BP Location Tested BP Systolic BP Type Fetus Heart Rate Present Fetus Movement Comments Flowsheet Date 02/24/2021 Sharma Score Blood Edema Fundus Height Fundus Units Glucose Ketones Leukocytes Nitrite Labor Signs Protein Cervic Dilation Cervic Effacement Cervic Station Type Weight in lbs Pre/Post Dialysis Refused BP Diastolic BP Location Tested BP Systolic BP Type Fetus Heart Rate Present Fetus Movement Comments Flowsheet Date 02/24/2021 Sharma Score Blood Edema Fundus Height Fundus Units Glucose Ketones Leukocytes Nitrite Labor Signs Protein Cervic Dilation Cervic Effacement Cervic Station 361 trace 0cm 70% -2 Type Weight in lbs Pre/Post Dialysis Refused Weight 270.46819496783 BP Diastolic BP Location Tested BP Systolic BP Type 75 R arm 124 sitting Fetus Heart Rate Present A 145 Fetus Movement A Yes Comments GBS done. Low head, closed a nd thin Flowsheet Date 03/03/2021 Sharma Score Blood Edema Fundus Height Fundus Units Glucose Ketones Leukocytes Nitrite Labor Signs Protein Cervic Dilation Cervic Effacement Cervic Station Type Weight in lbs Pre/Post Dialysis Refused BP Diastolic BP Location Tested BP Systolic BP Type Fetus Heart Rate Present Fetus Movement Comments Flowsheet Date 03/03/2021 Sharma Score Blood Edema Fundus Height Fundus Units Glucose Ketones Leukocytes Nitrite Labor Signs Protein Cervic Dilation Cervic Effacement Cervic Station Type Weight in lbs Pre/Post Dialysis Refused BP Diastolic BP Location Tested BP Systolic BP Type Fetus Heart Rate Present Fetus Movement Comments Flowsheet Date 03/03/2021 Sharma Score Blood Edema Fundus Height Fundus Units Glucose Ketones Leukocytes Nitrite Labor Signs Protein Cervic Dilation Cervic Effacement Cervic Station neg trace 38 trace 1cm 50% -2 Type Weight in lbs Pre/Post Dialysis Refused Weight 274.808996726240 BP Diastolic BP Location Tested BP Systolic BP Type 73 114 Fetus Heart Rate Present A 150 Fetus Movement A Yes Comments Doing well overall, but read y/uncomfortable. REquesting 39 week IOL. Reasonable, huseyin with GDMA1 and obesity. Will schedule. BPP 01/04, NST reactive but with 2 variables. BS perfect. GBS neg. Flowsheet Date 03/10/2021 Sharma Score Blood Edema Fundus Height Fundus Units Glucose Ketones Leukocytes Nitrite Labor Signs Protein Cervic Dilation Cervic Effacement Cervic Station Type Weight in lbs Pre/Post Dialysis Refused BP Diastolic BP Location Tested BP Systolic BP Type Fetus Heart Rate Present Fetus Movement Comments Flowsheet Date 03/10/2021 Sharma Score Blood Edema Fundus Height Fundus Units Glucose Ketones Leukocytes Nitrite Labor Signs Protein Cervic Dilation Cervic Effacement Cervic Station Type Weight in lbs Pre/Post Dialysis Refused BP Diastolic BP Location Tested BP Systolic BP Type Fetus Heart Rate Present Fetus Movement Comments Flowsheet Date 03/10/2021 Sharma Score Blood Edema Fundus Height Fundus Units Glucose Ketones Leukocytes Nitrite Labor Signs Protein Cervic Dilation Cervic Effacement Cervic Station 37 trace Type Weight in lbs Pre/Post Dialysis Refused Weight 278.559185762501 BP Diastolic BP Location Tested BP Systolic BP Type 74 R arm 110 sitting Fetus Heart Rate Present A 144 Fetus Movement A Yes Comments Menstrual History Last Menstrual Date Menses Monthly On Bcp Conception Prior Menses Frequency Hcg Plus Date Menarche Onset Age 0106/14/2020 Genetic Screening And Infection History Question Response Note Mental Retardation/Autism false Patient's Age Will Be 35 Yea rs Or Older At Estimated Date of Delivery false Thalassemia (Mongolian, Gabonese, Mediterranean, Or Background): MCV < 80 false Neural Tube Defect (Meningom yelocele, Spina Bifida, Or Anencephaly) false Congenital Heart Defect false Down Syndrome false Isaiah-Sachs (eg, Denominational, Cajun, Cuban-King And Queen) f alse Elena Disease false Sickle Cell Disease Or Trait () false Hemophilia Or Other Blood Disorders false Muscular Dystrophy false Cystic Fibrosis false Lamb's Chorea false Intellectual Disability/Autism false If Yes, Was Person Tested For Fragile X? false Other Inherited Genetic Or Chromosomal Disorder false Maternal Metabolic Disorder (eg, Type 1 Diabetes, PKU) false Patient Or Baby's Father Had A Child With Defects Not Listed Above false Recurrent Loss, Or A Stillbirth false Medications (including Suppl ements, Vitamins, Herbs, OTC Drugs), Illicit/Recreational Drugs, Alcohol false If Yes, Agent(s) And Strength/Dosage false Any Other Genetic History false cousin with dextrocardia Live With Someone With TB Or Exposed To TB false Patient Or Partner Has History Of Genital Herpes false Rash Or Viral Illness Since Last Menstrual Perio d false History Of STD, Gonorrhea, Chlamydia, HPV, Syphi lis false Other Infection History false History of HIV false History of Hepatitis false Prior GBS-infected child false Hemoglobinopathy Or Carrier false Other Structural Defect false Recent Travel History Outside of Country false Delivery Information Delivery Date Delivery Type Labor Anesthesia Weeks Gestation Incision Type Labor Labor Length Hrs Delivered By Post Complications Tubal Sterilization Discharge Date Comments 1 Induce d Regional-Ep idural 39.2 false Dominique Mg MD GDM Diet & Maternal Obesity Discharge Information Feeding Method Contraceptive Method Maternal HG B and HCT Levels Ob Episode Information Episode Created Date Number of Fetuses Patient Bloodtype Patient rh Status Prepregnancy Weight lbs Domestic Partner Domestic Partner Phone Father Name Clinical Training Specialist Status 07/29/19 22 1 B Positive 272 CLOSED Fetus Data First Name Last Name Admitted to NICU Weight (g) Sex Living Outcome Pediatric Complications Fetus ID Race Codes Race Delivery Type Andreslee 3770.48 35 F true Full Term [id number] Vaginal Delivery Problems Problem Notes declines COVID vaccineshort interval - discussed risksDunbar pt! potential for LGA- 87% at 29w Problem Name Start Date End Date Resolution Snomed Code Not e Gestational diabetes mellitus 58880297 (one touch veri o) BS QID, diet controlled Carrier of cystic fibrosis gene mutation 558039477 2020 CF positive FOB negative. Maternal obesity complicating , childbirth and the puerperium, antepartum 09/12/2020 [id number] 40+ BMI - 34 we ek weekly testing Social problem 01/19/2022 [id number] geeta rosas in accident Petr Calculation Initial Petr Date Initial Exam Date Initial Exam Provider Initial Ultrasound Date Last Menstrual Period Date Ultra Sound Weeks Gestation 02/18/2022 07/28/2021 06/30/2021 05/03/2021 6 Eighteen To Twenty Week Petr Update Ultra Sound Date Fundal Height At Umbil Quickening Date Ultra Sound Latest Weeks Gestation Final Petr Confirmed By Final Petr Confirmed Date Final Petr Date Ultra Sound Latest Days Gestation 0 07/28/2021 02/19/20 22 0 Pre-naldo Flowsheet Flowsheet Date 07/28/2021 Sharma Score Blood Edema Fundus Height Fundus Units Glucose Ketones Leukocytes Nitrite Labor Signs Protein Cervic Dilation Cervic Effacement Cervic Station neg none none trace Type Weight in lbs Pre/Post Dialysis Refused Weight 267.123631741020 BP Diastolic BP Location Tested BP Systolic BP Type 78 132 Fetus Heart Rate Present A 175 Fetus Movement A No Comments Mahogany is a 20yo wh o presents for care at 10w5d. She has a 4mo, discussed risks of short interval . She also had GDM last , will do early GCt. BMI 43. Has not had COVID vaccine, is undecided, encouraged. Labs and NIPT today. NT wnl. Flowsheet Date 08/25/2021 Sharma Score Blood Edema Fundus Height Fundus Units Glucose Ketones Leukocytes Nitrite Labor Signs Protein Cervic Dilation Cervic Effacement Cervic Station neg none none trace Type Weight in lbs Pre/Post Dialysis Refused Weight 268.013158113659 BP Diastolic BP Location Tested BP Systolic BP Type 71 111 Fetus Heart Rate Present A 145 Fetus Movement A Yes Comments Doing well. Decided not to g et COVID vaccine. Feeling well. Early GCT at 20w. Flowsheet Date 09/25/2021 Sharma Score Blood Edema Fundus Height Fundus Units Glucose Ketones Leukocytes Nitrite Labor Signs Protein Cervic Dilation Cervic Effacement Cervic Station neg trace none trace Type Weight in lbs Pre/Post Dialysis Refused Weight 268.648837807573 BP Diastolic BP Location Tested BP Systolic BP Type 70 110 Fetus Heart Rate Present A 150 Fetus Movement A No Comments Doing well except tired. Ear ly GCT next week, ordered. Anatomy US 2 weeks. Flowsheet Date 10/05/2021 Sharma Score Blood Edema Fundus Height Fundus Units Glucose Ketones Leukocytes Nitrite Labor Signs Protein Cervic Dilation Cervic Effacement Cervic Station Type Weight in lbs Pre/Post Dialysis Refused BP Diastolic BP Location Tested BP Systolic BP Type Fetus Heart Rate Present Fetus Movement Comments Flowsheet Date 10/05/2021 Sharma Score Blood Edema Fundus Height Fundus Units Glucose Ketones Leukocytes Nitrite Labor Signs Protein Cervic Dilation Cervic Effacement Cervic Station neg none none trace Type Weight in lbs Pre/Post Dialysis Refused Weight 268.956143548558 BP Diastolic BP Location Tested BP Systolic BP Type 66 109 Fetus Heart Rate Present A 150 Fetus Movement A Yes Comments Doing well. Has GDM, checkin g sugars for a few days. All fastings normal, occasional pp elevated if poor diet choices, will continue to monitor. US today anatomy complete and wnl except needs posterior fossa yet and has unilateral choroid plexus cyst. Discussed findings, reassured. Plan ante testing at 32w. Growth next visit. Flowsheet Date 11/04/2021 Sharma Score Blood Edema Fundus Height Fundus Units Glucose Ketones Leukocytes Nitrite Labor Signs Protein Cervic Dilation Cervic Effacement Cervic Station Type Weight in lbs Pre/Post Dialysis Refused BP Diastolic BP Location Tested BP Systolic BP Type Fetus Heart Rate Present Fetus Movement Comments Flowsheet Date 11/04/2021 Sharma Score Blood Edema Fundus Height Fundus Units Glucose Ketones Leukocytes Nitrite Labor Signs Protein Cervic Dilation Cervic Effacement Cervic Station neg trace 28 none trace Type Weight in lbs Pre/Post Dialysis Refused Weight 270.81114232856 BP Diastolic BP Location Tested BP Systolic BP Type 73 107 Fetus Heart Rate Present A 160 Fetus Movement A Yes Comments Doing well. Sugars perfect n ow on diet! Grwoth today 75%, will monitor. GLEASON GEAR GENERATOR resolved. Discuss Tdap next visit, needs to schedule ante testing then. Flowsheet Date 12/03/2021 Sharma Score Blood Edema Fundus Height Fundus Units Glucose Ketones Leukocytes Nitrite Labor Signs Protein Cervic Dilation Cervic Effacement Cervic Station 29 Type Weight in lbs Pre/Post Dialysis Refused Weight 278.868831716951 BP Diastolic BP Location Tested BP Systolic BP Type 69 R arm 106 sitting Fetus Heart Rate Present A 142 Fetus Movement A Yes Comments no complaints, patient is do ing well, blood sugars were reviewed and are very good. Eighty-seventh percentile growth Flowsheet Date 12/03/2021 Sharma Score Blood Edema Fundus Height Fundus Units Glucose Ketones Leukocytes Nitrite Labor Signs Protein Cervic Dilation Cervic Effacement Cervic Station Type Weight in lbs Pre/Post Dialysis Refused BP Diastolic BP Location Tested BP Systolic BP Type Fetus Heart Rate Present Fetus Movement Comments Flowsheet Date 12/14/2021 Sharma Score Blood Edema Fundus Height Fundus Units Glucose Ketones Leukocytes Nitrite Labor Signs Protein Cervic Dilation Cervic Effacement Cervic Station neg trace 34 Type Weight in lbs Pre/Post Dialysis Refused Weight 273.118094769840 BP Diastolic BP Location Tested BP Systolic BP Type 67 114 Fetus Heart Rate Present A 145 Fetus Movement A Yes Comments Doing well. SUgars good. Ant e testing scheduled, though needs to rescchedule some due to work schedule. Discussed Tdap, will do. Grwoth US next visit- was approaching LGA last scan. Flowsheet Date 12/29/2021 Sharma Score Blood Edema Fundus Height Fundus Units Glucose Ketones Leukocytes Nitrite Labor Signs Protein Cervic Dilation Cervic Effacement Cervic Station Type Weight in lbs Pre/Post Dialysis Refused BP Diastolic BP Location Tested BP Systolic BP Type Fetus Heart Rate Present Fetus Movement Comments Flowsheet Date 12/29/2021 Sharma Score Blood Edema Fundus Height Fundus Units Glucose Ketones Leukocytes Nitrite Labor Signs Protein Cervic Dilation Cervic Effacement Cervic Station Type Weight in lbs Pre/Post Dialysis Refused BP Diastolic BP Location Tested BP Systolic BP Type Fetus Heart Rate Present Fetus Movement Comments Flowsheet Date 12/29/2021 Sharma Score Blood Edema Fundus Height Fundus Units Glucose Ketones Leukocytes Nitrite Labor Signs Protein Cervic Dilation Cervic Effacement Cervic Station neg none 37 none trace Type Weight in lbs Pre/Post Dialysis Refused Weight 281.367870447178 BP Diastolic BP Location Tested BP Systolic BP Type 73 110 Fetus Heart Rate Present A 115 Fetus Movement A Yes Comments Doing well. Feels huge, but EFW on US today only 67%, will repeat at 36w. Forgot BS, RN will call for them tomorrow, she states they are normal. NST reactive. Flowsheet Date 01/05/2022 Sharma Score Blood Edema Fundus Height Fundus Units Glucose Ketones Leukocytes Nitrite Labor Signs Protein Cervic Dilation Cervic Effacement Cervic Station Type Weight in lbs Pre/Post Dialysis Refused BP Diastolic BP Location Tested BP Systolic BP Type Fetus Heart Rate Present Fetus Movement Comments Flowsheet Date 01/05/2022 Sharma Score Blood Edema Fundus Height Fundus Units Glucose Ketones Leukocytes Nitrite Labor Signs Protein Cervic Dilation Cervic Effacement Cervic Station Type Weight in lbs Pre/Post Dialysis Refused BP Diastolic BP Location Tested BP Systolic BP Type Fetus Heart Rate Present Fetus Movement Comments Flowsheet Date 01/05/2022 Sharma Score Blood Edema Fundus Height Fundus Units Glucose Ketones Leukocytes Nitrite Labor Signs Protein Cervic Dilation Cervic Effacement Cervic Station Type Weight in lbs Pre/Post Dialysis Refused Weight 274.467178753999 BP Diastolic BP Location Tested BP Systolic BP Type 72 111 Fetus Heart Rate Present A 135 Fetus Movement Comments Diong well except forgot sug ars again. NSt reactive. Reminded to bring sugars to every appt. She states they are normal. FU weekly. Flowsheet Date 01/12/2022 Sharma Score Blood Edema Fundus Height Fundus Units Glucose Ketones Leukocytes Nitrite Labor Signs Protein Cervic Dilation Cervic Effacement Cervic Station Type Weight in lbs Pre/Post Dialysis Refused BP Diastolic BP Location Tested BP Systolic BP Type Fetus Heart Rate Present Fetus Movement Comments Flowsheet Date 01/12/2022 Sharma Score Blood Edema Fundus Height Fundus Units Glucose Ketones Leukocytes Nitrite Labor Signs Protein Cervic Dilation Cervic Effacement Cervic Station Type Weight in lbs Pre/Post Dialysis Refused BP Diastolic BP Location Tested BP Systolic BP Type Fetus Heart Rate Present Fetus Movement Comments Flowsheet Date 01/12/2022 Sharma Score Blood Edema Fundus Height Fundus Units Glucose Ketones Leukocytes Nitrite Labor Signs Protein Cervic Dilation Cervic Effacement Cervic Station none trace Type Weight in lbs Pre/Post Dialysis Refused Weight 275.345307767722 BP Diastolic BP Location Tested BP Systolic BP Type 75 115 Fetus Heart Rate Present A 150 Fetus Movement Comments Doing well, no concerns. NST reactive. States BS good, but didn't bring again. RN to call tomorrow and get last two weeks. Flowsheet Date 01/19/2022 Sharma Score Blood Edema Fundus Height Fundus Units Glucose Ketones Leukocytes Nitrite Labor Signs Protein Cervic Dilation Cervic Effacement Cervic Station Type Weight in lbs Pre/Post Dialysis Refused BP Diastolic BP Location Tested BP Systolic BP Type Fetus Heart Rate Present Fetus Movement Comments Flowsheet Date 01/19/2022 Sharma Score Blood Edema Fundus Height Fundus Units Glucose Ketones Leukocytes Nitrite Labor Signs Protein Cervic Dilation Cervic Effacement Cervic Station Type Weight in lbs Pre/Post Dialysis Refused BP Diastolic BP Location Tested BP Systolic BP Type Fetus Heart Rate Present Fetus Movement Comments Flowsheet Date 01/19/2022 Sharma Score Blood Edema Fundus Height Fundus Units Glucose Ketones Leukocytes Nitrite Labor Signs Protein Cervic Dilation Cervic Effacement Cervic Station neg none trace trace Type Weight in lbs Pre/Post Dialysis Refused Weight 272.461603127549 BP Diastolic BP Location Tested BP Systolic BP Type 89 139 Fetus Heart Rate Present A 125 Fetus Movement A Yes Comments Mesha Naylor in accident at work 4 days ago. She is obviously distraught. Living with his parents right now. Denies thoughts of hurting herself as she needs to be here for her girls. Support given. Encouraged to take care of herself for Renlee. Flowsheet Date 01/26/2022 Sharma Score Blood Edema Fundus Height Fundus Units Glucose Ketones Leukocytes Nitrite Labor Signs Protein Cervic Dilation Cervic Effacement Cervic Station Type Weight in lbs Pre/Post Dialysis Refused BP Diastolic BP Location Tested BP Systolic BP Type Fetus Heart Rate Present Fetus Movement Comments Flowsheet Date 01/26/2022 Sharma Score Blood Edema Fundus Height Fundus Units Glucose Ketones Leukocytes Nitrite Labor Signs Protein Cervic Dilation Cervic Effacement Cervic Station Type Weight in lbs Pre/Post Dialysis Refused BP Diastolic BP Location Tested BP Systolic BP Type Fetus Heart Rate Present Fetus Movement Comments Flowsheet Date 01/26/2022 Sharma Score Blood Edema Fundus Height Fundus Units Glucose Ketones Leukocytes Nitrite Labor Signs Protein Cervic Dilation Cervic Effacement Cervic Station neg trace 38 none trace 2cm 50% -2 Type Weight in lbs Pre/Post Dialysis Refused Weight 268.699809198307 BP Diastolic BP Location Tested BP Systolic BP Type 66 105 Fetus Heart Rate Present A 155 Fetus Movement A Yes Comments Doing ok, taking it one day at a time. BPP 10/10. EFW 75%. BS perfect. GBS done. Requesting IOL on Tue. Her mom will be with her. Flowsheet Date 02/02/2022 Sharma Score Blood Edema Fundus Height Fundus Units Glucose Ketones Leukocytes Nitrite Labor Signs Protein Cervic Dilation Cervic Effacement Cervic Station Type Weight in lbs Pre/Post Dialysis Refused BP Diastolic BP Location Tested BP Systolic BP Type Fetus Heart Rate Present Fetus Movement Comments Flowsheet Date 02/02/2022 Sharma Score Blood Edema Fundus Height Fundus Units Glucose Ketones Leukocytes Nitrite Labor Signs Protein Cervic Dilation Cervic Effacement Cervic Station Type Weight in lbs Pre/Post Dialysis Refused BP Diastolic BP Location Tested BP Systolic BP Type Fetus Heart Rate Present Fetus Movement Comments Flowsheet Date 02/02/2022 Sharma Score Blood Edema Fundus Height Fundus Units Glucose Ketones Leukocytes Nitrite Labor Signs Protein Cervic Dilation Cervic Effacement Cervic Station neg trace none trace 2cm Type Weight in lbs Pre/Post Dialysis Refused Weight 270.82427053140 BP Diastolic BP Location Tested BP Systolic BP Type 74 117 Fetus Heart Rate Present A 140 Fetus Movement A Yes Comments Gbs neg. BPP 10/10. PRANAY 7.8, encouraged hydration, will monitor Precautions givne. Menstrual History Last Menstrual Date Menses Monthly On Bcp Conception Prior Menses Frequency Hcg Plus Date Menarche Onset Age 1205/03/2021 Genetic Screening And Infection History Question Response Note Mental Retardation/Autism false Patient's Age Will Be 35 Years Or Older At Estim ated Date of Delivery false Thalassemia (Mongolian, Gabonese, Mediterranean, Or Background): MCV < 80 false Neural Tube Defect (Meningomyelocele, Spina Bifi da, Or Anencephaly) false Congenital Heart Defect false Down Syndrome false Isaiah-Sachs (eg, Denominational, Cajun, Cuban-King And Queen) f alse Elena Disease false Sickle Cell Disease Or Trait () false Hemophilia Or Other Blood Disorders false Muscular Dystrophy false Cystic Fibrosis false Lamb's Chorea false Intellectual Disability/Autism false If Yes, Was Person Tested For Fragile X? false Other Inherited Genetic Or Chromosomal Disorder false Maternal Metabolic Disorder (eg, Type 1 Diabetes , PKU) false Patient Or Baby's Father Had A Child With Defects Not Listed Above false Recurrent Loss, Or A Stillbirth false Medications (including Suppl ements, Vitamins, Herbs, OTC Drugs), Illicit/Recreational Drugs, Alcohol false If Yes, Agent(s) And Strength/Dosage false Any Other Genetic History false Live With Someone With TB Or Exposed To TB false Patient Or Partner Has History Of Genital Herpes false Rash Or Viral Illness Since Last Menstrual Perio d false History Of STD, Gonorrhea, Chlamydia, HPV, Syphi lis false Other Infection History false History of HIV false History of Hepatitis false Prior GBS-infected child false Hemoglobinopathy Or Carrier false Other Structural Defect false Recent Travel History Outside of Country false Delivery Information Delivery Date Delivery Type Labor Anesthesia Weeks Gestation Incision Type Labor Labor Length Hrs Delivered By Post Complications Tubal Sterilization Discharge Date Comments 2 None Regional-Ep idural 38.5 false Dominique Mg MD SROM, GDM and Maternal obesity Discharge Information Feeding Method Contraceptive Method Maternal HG B and HCT Levels Ob Episode Information Episode Created Date Number of Fetuses Patient Bloodtype Patient rh Status Prepregnancy Weight lbs Domestic Partner Domestic Partner Phone Father Name Clinical Training Specialist Status 06/29/19 24 1 B Positive 259 CLOSED Fetus Data First Name Last Name Admitted to NICU Weight (g) Sex Living Outcome Pediatric Complications Fetus ID Race Codes Race Delivery Type 3118.44 5 M true Full Term [id number] Vaginal Delivery Problems Problem Notes Failed NIPT x 2 - MFM referr al for Level II US & genetic counseling faxed to [facility] on per Dominique pt prefers to schedule all us here including BSE JG Problem Name Start Date End Date Resolution Snomed Code Not e Obesity [id number] plan anten atal testing Carrier of cystic fibrosis gene mutation [id number] +jose a ier/known - 06/30 offered repeat [facility] testing for baby & FOB testing pt to let us know 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 Maternal history of gestational diabetes [id number] 5 .1 depression [id number] history Petr Calculation Initial Petr Date Initial Exam Date Initial Exam Provider Initial Ultrasound Date Last Menstrual Period Date Ultra Sound Weeks Gestation 01/10/2024 06/29/2023 04/05/2023 0 Eighteen To Twenty Week Petr Update Ultra Sound Date Fundal Height At Umbil Quickening Date Ultra Sound Latest Weeks Gestation Final Petr Confirmed By Final Petr Confirmed Date Final Petr Date Ultra Sound Latest Days Gestation 0 01/10/20 24 0 Pre-naldo Flowsheet Flowsheet Date 06/29/2023 Sharma Score Blood Edema Fundus Height Fundus Units Glucose Ketones Leukocytes Nitrite Labor Signs Protein Cervic Dilation Cervic Effacement Cervic Station Type Weight in lbs Pre/Post Dialysis Refused Weight 259.861035969038 BP Diastolic BP Location Tested BP Systolic BP Type 74 110 Fetus Heart Rate Present Fetus Movement Comments labs done, nips today, hx ge stational diabetes, reviewed US, education and precautions, has prev declined covid vaccination, 2 prev vaginal deliveries Flowsheet Date 07/27/2023 Sharma Score Blood Edema Fundus Height Fundus Units Glucose Ketones Leukocytes Nitrite Labor Signs Protein Cervic Dilation Cervic Effacement Cervic Station neg none none trace Type Weight in lbs Pre/Post Dialysis Refused Weight 261.58226726101 BP Diastolic BP Location Tested BP Systolic BP Type 76 120 Fetus Heart Rate Present Fetus Movement A Yes Comments setting appt with kaur hathaway to get NIPS, us today for FHR, feeling good! precautions and education Flowsheet Date 08/31/2023 Sharma Score Blood Edema Fundus Height Fundus Units Glucose Ketones Leukocytes Nitrite Labor Signs Protein Cervic Dilation Cervic Effacement Cervic Station Type Weight in lbs Pre/Post Dialysis Refused BP Diastolic BP Location Tested BP Systolic BP Type Fetus Heart Rate Present Fetus Movement Comments Flowsheet Date 08/31/2023 Sharma Score Blood Edema Fundus Height Fundus Units Glucose Ketones Leukocytes Nitrite Labor Signs Protein Cervic Dilation Cervic Effacement Cervic Station neg trace none trace Type Weight in lbs Pre/Post Dialysis Refused Weight 262.649343507012 BP Diastolic BP Location Tested BP Systolic BP Type 72 119 Fetus Heart Rate Present Fetus Movement A Yes Comments Patient is having some pelvi c pain, discharge and swelling. anatomy incomplete f/u in 4 weeks, precautions and education reviewed circumvallate placenta Flowsheet Date 09/28/2023 Sharma Score Blood Edema Fundus Height Fundus Units Glucose Ketones Leukocytes Nitrite Labor Signs Protein Cervic Dilation Cervic Effacement Cervic Station Type Weight in lbs Pre/Post Dialysis Refused BP Diastolic BP Location Tested BP Systolic BP Type Fetus Heart Rate Present Fetus Movement Comments Flowsheet Date 09/28/2023 Sharma Score Blood Edema Fundus Height Fundus Units Glucose Ketones Leukocytes Nitrite Labor Signs Protein Cervic Dilation Cervic Effacement Cervic Station neg none none trace Type Weight in lbs Pre/Post Dialysis Refused Weight 266.758104545520 BP Diastolic BP Location Tested BP Systolic BP Type 68 112 Fetus Heart Rate Present Fetus Movement A Yes Comments Patient states that having s ome congestion and discharge. pcp mentioned referral to ent ok if needs me to send it. anatomy complete, doing well, education and precautions, f/u 4 week GCT Flowsheet Date 10/26/2023 Sharma Score Blood Edema Fundus Height Fundus Units Glucose Ketones Leukocytes Nitrite Labor Signs Protein Cervic Dilation Cervic Effacement Cervic Station Type Weight in lbs Pre/Post Dialysis Refused BP Diastolic BP Location Tested BP Systolic BP Type Fetus Heart Rate Present Fetus Movement Comments Flowsheet Date 10/26/2023 Sharma Score Blood Edema Fundus Height Fundus Units Glucose Ketones Leukocytes Nitrite Labor Signs Protein Cervic Dilation Cervic Effacement Cervic Station trace Type Weight in lbs Pre/Post Dialysis Refused Weight 270.38812311145 BP Diastolic BP Location Tested BP Systolic BP Type 71 111 Fetus Heart Rate Present Fetus Movement Comments Patient is having BH contrac tions, discharge and swelling. efw 47%, pranay 8.89, encouraged increased hydration and will rpt in 2 weeks. +FM, precautions and education GCT today Flowsheet Date 11/08/2023 Sharma Score Blood Edema Fundus Height Fundus Units Glucose Ketones Leukocytes Nitrite Labor Signs Protein Cervic Dilation Cervic Effacement Cervic Station Type Weight in lbs Pre/Post Dialysis Refused BP Diastolic BP Location Tested BP Systolic BP Type Fetus Heart Rate Present Fetus Movement Comments Flowsheet Date 11/08/2023 Sharma Score Blood Edema Fundus Height Fundus Units Glucose Ketones Leukocytes Nitrite Labor Signs Protein Cervic Dilation Cervic Effacement Cervic Station Type Weight in lbs Pre/Post Dialysis Refused Weight 270.818348665617 BP Diastolic BP Location Tested BP Systolic BP Type 77 111 Fetus Heart Rate Present A 143 Fetus Movement A Yes Comments Good movement. No cram ping or bleeding. PRANAY 10.8, MVP 5.5cm. Has increased hydration. Discussed preadmission and Tdap. RTC 2 weeks. Flowsheet Date 11/25/2023 Sharma Score Blood Edema Fundus Height Fundus Units Glucose Ketones Leukocytes Nitrite Labor Signs Protein Cervic Dilation Cervic Effacement Cervic Station trace 34 Type Weight in lbs Pre/Post Dialysis Refused Weight 272.460109255870 BP Diastolic BP Location Tested BP Systolic BP Type 71 107 Fetus Heart Rate Present A 145 Present Fetus Movement A Yes Comments Patient states that having h ip pain, discharge and nausea. start testing next week for bmi, doing well +FM , call for preadmit, precautions and education reviewed Flowsheet Date 12/02/2023 Sharma Score Blood Edema Fundus Height Fundus Units Glucose Ketones Leukocytes Nitrite Labor Signs Protein Cervic Dilation Cervic Effacement Cervic Station Type Weight in lbs Pre/Post Dialysis Refused BP Diastolic BP Location Tested BP Systolic BP Type Fetus Heart Rate Present Fetus Movement Comments Flowsheet Date 12/02/2023 Sharma Score Blood Edema Fundus Height Fundus Units Glucose Ketones Leukocytes Nitrite Labor Signs Protein Cervic Dilation Cervic Effacement Cervic Station neg trace Type Weight in lbs Pre/Post Dialysis Refused Weight 271.321481320865 BP Diastolic BP Location Tested BP Systolic BP Type 67 L arm 106 sitting Fetus Heart Rate Present Fetus Movement A Yes Comments NST R to ld for bpp preadmis keiry scheduled, gbs at 36 weeks, headaches but resolve with tylenol, precautions and education f/u one week Flowsheet Date 12/07/2023 Sharma Score Blood Edema Fundus Height Fundus Units Glucose Ketones Leukocytes Nitrite Labor Signs Protein Cervic Dilation Cervic Effacement Cervic Station Type Weight in lbs Pre/Post Dialysis Refused BP Diastolic BP Location Tested BP Systolic BP Type Fetus Heart Rate Present Fetus Movement Comments Flowsheet Date 12/07/2023 Sharma Score Blood Edema Fundus Height Fundus Units Glucose Ketones Leukocytes Nitrite Labor Signs Protein Cervic Dilation Cervic Effacement Cervic Station Type Weight in lbs Pre/Post Dialysis Refused BP Diastolic BP Location Tested BP Systolic BP Type Fetus Heart Rate Present Fetus Movement Comments Flowsheet Date 12/07/2023 Sharma Score Blood Edema Fundus Height Fundus Units Glucose Ketones Leukocytes Nitrite Labor Signs Protein Cervic Dilation Cervic Effacement Cervic Station none Type Weight in lbs Pre/Post Dialysis Refused Weight 275.559399371178 BP Diastolic BP Location Tested BP Systolic BP Type 66 103 Fetus Heart Rate Present Fetus Movement A Yes Comments Patient states that is havin g contractions, discharge and swelling. reviewed precautions and education has preadmit scheduled. bpp 8/10 f/u one week +FM EFW 33% Flowsheet Date 12/14/2023 Sharma Score Blood Edema Fundus Height Fundus Units Glucose Ketones Leukocytes Nitrite Labor Signs Protein Cervic Dilation Cervic Effacement Cervic Station Type Weight in lbs Pre/Post Dialysis Refused BP Diastolic BP Location Tested BP Systolic BP Type Fetus Heart Rate Present Fetus Movement Comments Flowsheet Date 12/14/2023 Sharma Score Blood Edema Fundus Height Fundus Units Glucose Ketones Leukocytes Nitrite Labor Signs Protein Cervic Dilation Cervic Effacement Cervic Station Type Weight in lbs Pre/Post Dialysis Refused BP Diastolic BP Location Tested BP Systolic BP Type Fetus Heart Rate Present Fetus Movement Comments Flowsheet Date 12/14/2023 Sharma Score Blood Edema Fundus Height Fundus Units Glucose Ketones Leukocytes Nitrite Labor Signs Protein Cervic Dilation Cervic Effacement Cervic Station Type Weight in lbs Pre/Post Dialysis Refused Weight 272.018324638881 BP Diastolic BP Location Tested BP Systolic BP Type 73 119 Fetus Heart Rate Present Fetus Movement A Yes Comments Patient is having pelvic korey n, discharge, and swelling. Flowsheet Date 12/21/2023 Sharma Score Blood Edema Fundus Height Fundus Units Glucose Ketones Leukocytes Nitrite Labor Signs Protein Cervic Dilation Cervic Effacement Cervic Station Type Weight in lbs Pre/Post Dialysis Refused BP Diastolic BP Location Tested BP Systolic BP Type Fetus Heart Rate Present Fetus Movement Comments Flowsheet Date 12/21/2023 Sharma Score Blood Edema Fundus Height Fundus Units Glucose Ketones Leukocytes Nitrite Labor Signs Protein Cervic Dilation Cervic Effacement Cervic Station Type Weight in lbs Pre/Post Dialysis Refused BP Diastolic BP Location Tested BP Systolic BP Type Fetus Heart Rate Present Fetus Movement Comments Flowsheet Date 12/21/2023 Sharma Score Blood Edema Fundus Height Fundus Units Glucose Ketones Leukocytes Nitrite Labor Signs Protein Cervic Dilation Cervic Effacement Cervic Station trace 1cm 40% -2 Type Weight in lbs Pre/Post Dialysis Refused Weight 272.100727041927 BP Diastolic BP Location Tested BP Systolic BP Type 78 120 Fetus Heart Rate Present Fetus Movement A Yes Comments Patient is having some pelvi c pain , discharge and swelling. bpp 10/10, IOL 8/7 at 6 am, precautions and education reviewed Flowsheet Date 12/28/2023 Sharma Score Blood Edema Fundus Height Fundus Units Glucose Ketones Leukocytes Nitrite Labor Signs Protein Cervic Dilation Cervic Effacement Cervic Station Type Weight in lbs Pre/Post Dialysis Refused BP Diastolic BP Location Tested BP Systolic BP Type Fetus Heart Rate Present Fetus Movement Comments Flowsheet Date 12/28/2023 Sharma Score Blood Edema Fundus Height Fundus Units Glucose Ketones Leukocytes Nitrite Labor Signs Protein Cervic Dilation Cervic Effacement Cervic Station Type Weight in lbs Pre/Post Dialysis Refused BP Diastolic BP Location Tested BP Systolic BP Type Fetus Heart Rate Present Fetus Movement Comments Flowsheet Date 12/28/2023 Sharma Score Blood Edema Fundus Height Fundus Units Glucose Ketones Leukocytes Nitrite Labor Signs Protein Cervic Dilation Cervic Effacement Cervic Station 1cm 50% -2 Type Weight in lbs Pre/Post Dialysis Refused 275.978135793752 BP Diastolic BP Location Tested BP Systolic BP Type 71 105 Fetus Heart Rate Present Fetus Movement A Yes Comments Patient is having some hip p ain, swelling, nausea and vomiting. IOL next week bpp 10/10, doing well +FM precautions and education Menstrual History Last Menstrual Date Menses Monthly On Bcp Conception Prior Menses Frequency Hcg Plus Date Menarche Onset Age 1104/05/2023 Genetic Screening And Infection History Question Response Note Mental Retardation/Autism false Patient's Age Will Be 35 Years Or Older At Estim ated Date of Delivery false Thalassemia (Mongolian, Gabonese, Mediterranean, Or Background): MCV < 80 false Neural Tube Defect (Meningomyelocele, Spina Bifi da, Or Anencephaly) false Congenital Heart Defect false Down Syndrome false Isaiah-Sachs (eg, Denominational, Cajun, Cuban-King And Queen) f alse Elena Disease false Sickle Cell Disease Or Trait () false Hemophilia Or Other Blood Disorders false Muscular Dystrophy false Cystic Fibrosis false Lamb's Chorea false Intellectual Disability/Autism false If Yes, Was Person Tested For Fragile X? false Other Inherited Genetic Or Chromosomal Disorder false Maternal Metabolic Disorder (eg, Type 1 Diabetes , PKU) false Patient Or Baby's Father Had A Child With Defects Not Listed Above false Recurrent Loss, Or A Stillbirth false Medications (including Suppl ements, Vitamins, Herbs, OTC Drugs), Illicit/Recreational Drugs, Alcohol false If Yes, Agent(s) And Strength/Dosage false Any Other Genetic History false Live With Someone With TB Or Exposed To TB false Patient Or Partner Has History Of Genital Herpes false Rash Or Viral Illness Since Last Menstrual Perio d false History Of STD, Gonorrhea, Chlamydia, HPV, Syphi lis false Other Infection History false History of HIV false History of Hepatitis false Prior GBS-infected child false Hemoglobinopathy Or Carrier false Other Structural Defect false Recent Travel History Outside of Country false Delivery Information Delivery Date Delivery Type Labor Anesthesia Weeks Gestation Incision Type Labor Labor Length Hrs Delivered By Post Complications Tubal Sterilization Discharge Date Comments 4 Induce d Regional-Ep idural 39.1 false Pring Carrier of cystic fibrosis gene mutation, Maternal history of gestation al diabetes, Obesity,P lacenta circumval albert,Post depressio n Discharge Information Feeding Method Contraceptive Method Maternal HG B and HCT Levels
--- OUTSIDE RECORDS SUMMARY | 2024-10-03 01:11 | XMS_ITS | Clinical Summary ---
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 Gender Identity Not on file Sexual Orientation Not on file Last Filed Vital Signs Vital Sign Reading Time Taken Comments Blood Pressure 123/67 03/25/2022 2:11 PM CDT Pulse 89 03/25/2022 2:11 PM CDT Temperature 36.9 C (98.4 F) 03/25/2022 2:11 PM CDT Respiratory Rate 16 03/25/2022 2:11 PM CDT Oxygen Saturation 100% 03/25/2022 2:11 PM CDT Inhaled Oxygen Concentration - - Weight 114.5 kg (252 lb 6 oz) 03/25/2022 2:11 PM CDT Height 167.6 cm (5' 6 ) 03/25/2022 2:11 PM CDT Body Mass Index 40.73 03/25/2022 2:11 PM CDT Plan of Treatment Health Maintenance Due Date Last Done Comments Cervical Cancer Screening Pap Smear (Age 21 to 29) Every 3 Years 1998 Cervical Cancer Screening 1998 Annual Physical 2001 Hepatitis C 2016 COVID-19 Vaccine ( season) 2024 DTaP, Tdap and Td Vaccines (8 - Td or Tdap) 02/04/2031 02/04/2021, 12/09/2011, 02/05/2003, Additional history exists Hepatitis B Vaccines Completed 03/17/2000, 04/30/1999, 02/26/1999 HPV Vaccines Completed 06/12/2012, 01/29, 12/09/2011 Meningococcal Vaccine Completed 01/16/2016, 012 Meningococcal B Vaccine Aged Out No l onger eligible based on patient's age to complete this topic Pneumococcal Vaccine: Pediatrics (0 to 5 Years) and At-Risk Patients (6 to 49 Years) Aged Out No longer eligible based on patient's age to complete this topic RSV Immunizations Under 20 Months Aged Out No longer eligible based on patient's age to complete this topic Insurance Care Teams Sanitary Plumber Relationship Specialty Start Date End Date Mya Muhammad DO PCP - General FAMILY PRACTICE 03/25/22
--- OUTSIDE RECORDS SUMMARY | 2024-10-03 01:11 | XMS_ITS | Clinical Summary ---
Author Organization [facility] Address [address] [place] [address] Phone Care Team Providers Care Deicer Element Winder Machine Name Role Phone Dominique Mg MD Unavailable [phone] Anival Ling MD Primary Care Provider [phone] Allergies No known active allergies Medications clobetasoL (TEMOVATE) 0.05 % external solutionIndicat ions:Dermatosis of the Scalp Apply topically 2 (two) times a day as needed (scalp rash/irritation) 50 mL 5 4 Active clindamycin (Cleocin T) 1 % lotion Apply topically 2 (two) times a day 60 mL 11 4 05/18/20 25 Active Additional Information Patient taking differently:topical 2 times daily,Indications: boils, Informant: Self, Reported on 08/13/2024 PNV 17-sczx-wadcbql olate-dha 29 mg iron-1 mg -350 mg comb pack,tablet DR,capsule DRIndications:h ealth Take 1 capsule by mouth torpedo shooter before breakfast Active inulin 1.5 gram tablet,chewable Indications:fib er Take 1 capsule by mouth torpedo shooter before breakfast Active oxyCODONE (ROXICODONE) 5 mg immediate release tabletIndicatio ns:Pain Take 1 tablet (5 mg total) by mouth every 4 (four) hours as needed for pain (breakthrough pain) 10 tablet 5 Active sodium bicarb-sodium chloride packet 1 packet by sinus irrigation route 3 (three) times a day 100 packet 2 5 Active sod qezik-xurqqw-ci ueez bottle 2,300-700 mg kit Administer 1 spray into each nostril 3 (three) times a day 1 kit 5 Active Active Problems Problem Noted Date Diagnosed Date Deviated nasal septum 06/22/2024 Hypertrophy of both inferior nasal turbinates 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 Patient is willing to continue on the fluoxetine and to reach out for therapy. Patient understands that she is to go to nearest emergency room should she feel like she would be a harm to herself or to others. Assessment & Plan (03/28/2023 2:40 PM CDT): Experiencing the following symptoms of depression most of the day nearly every day for more than two consecutive weeks: change in sleep, depressed mood, loss of energy, loss of interests/pleasure, thoughts of worthlessness or guilt, trouble concentrating Newly diagnosed, trial of fluoxetine. Handout given with local resources to therapy and psychiatric care. Strongly encouraged therapy. Go to nearest emergency room if you feel you will be a harm to herself or to others. Generalized anxiety disorder 03/28/2023 Assessment & Plan (04/28/2023 2:16 PM RETAIL FIELD MERCHANDISER): Clinically improved, continue current prescription medications, fluoxetine. Assessment & Plan (03/28/2023 2:35 PM CDT): Newly diagnosed, trial of fluoxetine. Handout given with local resources to therapy and psychiatric care. Strongly encouraged therapy. Go to nearest emergency room if you feel you will be a harm to herself or to others. Bilateral hip pain 10/04/2022 Class 3 severe obesity due t o excess calories without serious comorbidity with body mass index (BMI) of 40.0 to 44.9 in adult 07/16/2022 Assessment & Plan (07/05/2023 11:01 AM RETAIL FIELD MERCHANDISER): Weight reduction, daily exercise and dietary modifications recommended. Assessment & Plan (04/28/2023 2:15 PM RETAIL FIELD MERCHANDISER): Weight reduction, daily exercise and dietary modifications recommended. Assessment & Plan (03/28/2023 2:34 PM CDT): Weight reduction, daily exercise and dietary modifications recommended. Assessment & Plan (09/16/2022 1:32 PM CDT): Weight reduction, daily exercise and dietary modifications recommended. Assessment & Plan (07/16/2022 1:12 PM RETAIL FIELD MERCHANDISER): Weight reduction, daily exercise and dietary modifications recommended. Chronic bilateral low back pain without sciatica 07/16/2022 Assessment & Plan (09/16/2022 1:31 PM CDT): To referrals placed 1 for Orthopedics back specialist, and the 2nd 1 is for physical therapy. Patient encouraged to make appointments and follow through. Discontinue ibuprofen, switch to diclofenac 75 mg twice daily as needed for back pain. May use Flexeril at bedtime. Assessment & Plan (07/16/2022 1:12 PM RETAIL FIELD MERCHANDISER): X-rays ordered, will follow. Ibuprofen as needed for pain use as directed. Psoriasis 07/16/2022 Assessment & Plan (07/16/2022 1:12 PM RETAIL FIELD MERCHANDISER): Has not been treating her psoriasis, patient is open to seeing a director global strategic publisher sales. Trial of topical steroid in the meantime. Use as directed. Referred to dermatology. History of gestational diabetes 02/10/2021 state, gestational carrier 09/12/2020 Assessment & Plan (11/27/2020 10:47 AM CDT): No complaints. Managed by CYTOLOGY SUPERVISOR. Resolved Problems Problem Noted Date Diagnosed Date Resolved Date White classification A1 gest ational diabetes mellitus (GDM) 10/05/2021 09/16/2022 09/16/2022 Obesity affecting , antepartum 09/12/2020 07/16/2022 Encounters Date Type Department Care Team Description 08/24/2024 9:20 AM CDT Office Visit Advanced [facility] ([facility]) - [facility] ENT [address] [facility] 11th [place] [address] [place] [address] Aurora Stevens MD Deviated nasal septum (Primary Dx) 08/13/2024 10:03 AM CDT Anesthesia Event [facility] ([facility]) [address] [place] [address] Jarocho Donahue MD DDS Heuvelman, Katherine Marie, NP 08/13/2024 9:45 AM CDT - 08/13/2024 11:50 AM CDT Surgery [facility] ([facility]) [address] [place] [address] Aurora Stevens MD REDUCTION INFERIOR TURBINATE. 08/13/2024 6:45 AM CDT - 08/13/2024 1:12 PM CDT Hospital Encounter [facility] ([facility]) [address] [place] [address] Aurora Stevens MD Hypertrophy of both inferior nasal turbinates (Primary Dx); Deviated nasal septum; Hypertrophy of nasal turbinates Discharge Disposition: Discharge to home or self care from Last 3 Months Immunizations Immunization Administration Dates Next Due DTaP 02/05/2003, 0,07/06/1999,04/30,02/26/1999 HPV, Quadrivalent 06/12/2012,02/21/2012 HPV, Unspecified 12/09/2011 Hep A, Pediatric 06/12/2012,12/09/2011 Hep B / HiB 03/17/2000,04/30/1999,02/26/1999 IPV 02/05/2003 Influenza, Quadrivalent, Spl it, Preservative Free, Intramuscular 03/05/2019,02/02/2018 Influenza, Trivalent, IM (MDV) 03/11/2021 Influenza, Unspecified 03/28/2023(Deferr ed: Patient Refused),09/16/2022(Deferred: Patient Refused),03/28/2022(Deferred: Patient Refused) MMR 02/05/2003,12/29/1999 Meningococcal MCV4P (Menactra) 01/16/2016,2011 OPV 07/06/1999,04/30/1999,02/26/1999 Tdap 02/04/2021,12/09/2011 Varicella 02/21/2012,02/05/2003 Surgical History Surgery Date Site/Laterality Comments WISDOM TOOTH EXTRACTION 05/30/2016 - 05/29/2017 TUBAL LIGATION 02/28/2024 - 03/29/2024 TURBINATE RESECTION 08/13/2024 Face/Bilateral Procedure: REDUCTION INFERIOR TURBINATE.; Surgeon: Aurora Stevens MD; Location: [facility] CAM OR POD 4; Service: Otolaryngology; Laterality: Bilateral; NASAL SEPTUM SURGERY 08/13/2024 Face/Bilateral Procedure: SEPTOPLASTY.; Surgeon: Aurora Stevens MD; Location: [facility] CAM OR POD 4; Service: Otolaryngology; Laterality: Bilateral; Medical History Medical History Date Comments Headache Family History Medical History Relation Name Comments Hypertension Father Aristeo Cancer Maternal Grandfather Franko Diabetes Maternal Grandfather Franko Diabetes Maternal Grandmother Zahraa Cancer Paternal Grandfather Franko Diabetes Paternal Grandfather Franko Diabetes Paternal Grandmother Kaylan Anesthesia problems Neg Hx Relation Name Status Comments Father Aristeo Maternal Grandfather Franko Maternal Grandmother Zahraa Paternal Grandfather Franko Paternal Grandmother Kaylan Social History Tobacco Use Types Packs/Day Years Used Date Smoking Tobacco: Never Smokeless Tobacco: Never Tobacco Cessation:Counseling Given: Not Answered AUDIT-C Answer Date Recorded Q1: How often do you have a drink containing alc ohol? Monthly or less 08/13/2024 Q2: How many drinks containi ng alcohol do you have on a typical day when you are drinking? 1 or 2 08/13/2024 Q3: How often do you have si x or more drinks on one occasion? Never 08/13/2024 PHQ-2 Answer Date Recorded PHQ-2 Total Score (If total score is 3 or more points, staff should administer the PHQ-9) 0 07/05/2023 Hunger Vital Sign Answer Date Recorded Within the past 12 months, y ou worried that your food would run out before you got the money to buy more. Never true 12/07/19 23 Within the past 12 months, t he food you bought just didn't last and you didn't have money to get more. Never true 12/06/2022 Personal Safety Answer Date Recorded Have you ever been in or are you currently in a harmful physical or emotional relationship or is someone making you feel afraid or unsafe? Denies 08/13/2024 Comments No Sex and Gender Information Value Date Recorded Sex Assigned at Not on file Legal Sex Female 12:36 PM CDT Gender Identity Not on file Sexual Orientation Not on file Obstetrics History Para Term AB IAB SAB Ectopic Multiple Livin g Live Births 2 Date Outcome GA Total Labor Labor/2nd/3rd Weight Sex Type Anes PTL Christine A1 A5 Name Clin Last Filed Vital Signs Vital Sign Reading Time Taken Comments Blood Pressure 103/61 08/13/2024 12:40 PM CDT Pulse 57 08/13/2024 12:40 PM CDT Temperature 36.4 C (97.5 F) 08/13/2024 11:58 AM CDT Respiratory Rate 13 08/13/2024 12:40 PM CDT Oxygen Saturation 97% 08/13/2024 12:40 PM CDT Inhaled Oxygen Concentration - - Weight 125.6 kg (277 lb) 08/24/2024 9:22 AM CDT Height 165.1 cm (5' 5 ) 08/24/2024 9:22 AM CDT Body Mass Index 46.1 08/24/2024 9:22 AM CDT Plan of Treatment Health Maintenance Due Date Last Done Comments Hepatitis C Screening 1998 Regular Well Visit/Exam 18-64 07/16/2023 07/16/2022, 11/27/2020 Depression Screening 07/05/2024 07/05/2023, 04/28/2023, 03/28/2023, Additional history exists Influenza Vaccine (Season Ended) 2025 03/11/2021, 03/05/2019, 02/02/2018 Cervical Cancer Screening 08/28/2025 08/28/2020, 05/2020 DTaP/Tdap/Td Vaccine (8 - Td or Tdap) 02/04/2031 02/04/2021, 12/09/2011, 02/05/2003, Additional history exists Hepatitis B Screening Completed 03/17/2000 , 04/30/1999, 02/26/1999 Varicella Vaccines Completed 02/21/2012, 02/05/2003 HPV Vaccines Completed 06/12/2012, 01/29, 12/09/2011 Pneumococcal vaccine <65 Aged Out No longer eligible based on patient's age to complete this topic Procedures Procedure Name Priority Date/Time Associated Diagnosis Comments SURGICAL PATHOLOGY Routine 08/13/2024 11 :25 AM CDT Deviated nasal septum Hypertrophy of nasal turbinates MS AN PROCEDURE PLACEHOLDER Routine 08/13/2024 10:30 AM CDT MS AN ELECTIVE ENDOTRACHEAL AIRWAY Routine 08/13/2024 10:30 AM CDT SEPTOPLASTY. 08/13/2024 10:07 AM CDT Deviated nasal septum Hypertrophy of nasal turbinates REDUCTION INFERIOR TURBINATE. 08/13/2024 10:07 AM CDT Deviated nasal septum Hypertrophy of nasal turbinates POCT HCG, URINE Routine 08/13/2024 7:57 AM CDT HM PAP SMEAR WITH HPV Routine 08/28/2020 from Last 3 Months or Most Recently Relevant to Health Maintenance Results * Surgical pathology (08/13/2024 11:25 AM CDT) Tissue specimen (specimen) (Sinus contents) 08/13/2024 11:25 AM CDT Narrative PATHOLOGY BJ - 08/16/2024 9:36 AM CDT EPIC results best viewed via link to PDF [facility] [place] [address] Note to Patients: This report may contain a detailed description of human tissue sent by a health care provider to the laboratory for pathologic evaluation. The content of this report is essential for diagnosis and may provide important critical findings. This information may be unfamiliar to patients to review without a medical professional present. It is advised that the patient review this report in the presence of a health care provider who can answer questions and explain the details. SURGICAL PATHOLOGY REPORT FINAL Patient Name: MAHOGANY BURNS Gender: F : 2000 (Age: 23) Address: [address] [place], [place] [address] Hospital #: [id number] Taken:08/13/2024 Received:08/13/2024 Reported: 08/16/2024 Patient Type: [facility] Service: Surgery Location: Physician(s): Jose Maria Rolon M.D. Diagnosis: Sinus contents, bilateral, septoplasty: - Fragments of cartilage and bone with no histopathologic abnormality kw/08/16/2024 08:28 By this signature, I attest that the above diagnosis is based upon my personal examination of the slides(and/or other material indicated in the diagnosis). Anival Hummel MD PhD Report Electronically Reviewed and Signed Out By Anival Hummel MD PhD 08/16/2024 09:36:39 Sherice Doyle M.D. History: The patient is a 23-year-old woman with a deviated nasal septum and hypertrophy of nasal turbinates. Operative Procedure: Bilateral inferior turbinate reduction; bilateral septoplasty. Specimen(s) Received: A: Sinus contents Gross Description: Received in formalin labeled with the patient's identifiers and sinus contents is a 2.2 x 2.0 x 0.3 cm aggregate of multiple red-pink to cisse-white tissue and bone fragments. Entirely submitted in A1 following acid decalcification. Jar 0. dxb/08/13/2024 13:57 PA(s): RILEY Schultz, PA([facility])CM By this signature, I attest that the above diagnosis is based upon my personal examination of the slides(and/or other material). Addenda/Procedures The performance characteristics of some immunohistochemical stains, fluorescence in-situ hybridization tests and immunophenotyping by flow cytometry cited in this report (if any) were determined by the Surgical Pathology and Flow Cytometry Departments at [facility] as part of an ongoing quality assurance consultant program and in compliance with federally mandated regulations drawn from the Clinical Laboratory Improvement Act of 1988 (CLIA '88). Some of these tests rely on the use of analyte specific reagents and are subject to specific labeling requirements by the US Food and Drug Administration. Such diagnostic tests may only be performed in a facility that is certified by the Department of Health and Human Services as a high complexity laboratory under CLIA '88. The FDA has determined that such clearance or approval is not necessary. This test is used for clinical purposes. It should not be regarded as investigational or for research. Nevertheless, federal rules concerning the medical use of analyte specific reagents require that the following disclaimer be attached to the report: This test was developed and its performance characteristics determined by the Surgical Pathology and Flow Cytometry Departments of [facility]. It has not been cleared or approved by the U. S. Food and Drug Administration. IMAGES AND SCANNED DOCUMENTS, IF INCLUDED, ONLY VIEWABLE IN PDF VERSION OF REPORT Aurora Stevens MD LAB PATHOLOGY ORDERABLE S Final Result PATHOLOGY [facility] 3rd Floor [place], [place] [phone] * MS AN ELECTIVE ENDOTRACHEAL AIRWAY, MS AN PROCEDURE PLACEHOLDER (08/13/2024 10:30 AM CDT) Narrative Ana Muse CRNA - 08/13/2024 10:30 AM CDT Ana Muse CRNA 08/13/2024 10:30 AM Airway Patient location: OR Urgency: elective Indications for airway management: anesthesia Difficult airway: no Staff: Supervising provider: Jarocho Donahue MD DDS Placed by: SUPERVISOR KENNEL: Ana Muse CRNA Emergent airway documentation: Risks and benefits discussed: yes Consent obtained: yes Consent given by: patient Airway prep: Preoxygenated: yes Patient position: sniffing and reverse Trendelenburg Mask difficulty assessment: 1 - vent by mask Spontaneous ventilation during airway: absent Sedation level during airway: GA Final airway details: Final airway type: endotracheal airway Tube type: ETT ETT size: 7.0 mm Cuffed: yes Technique used for successful ETT placement: video laryngoscopy Insertion site: oral Video blade type: Greenbreg Blade size: 3 Cormack-Lehane (direct): grade I - full view of glottis Cormack-Lehane (video): grade I - full view of glottis Cuff volume: 6 mL Cuff inflated with: air ETT to lips: 23 cm Placement verified by: auscultation and CO2 detection Airway secured with: silk tape Number of attempts: 1 us Jarocho Donahue MD DDS ANESTHESIA ORDERABLES Ivette l Result * POCT hCG, urine (08/13/2024 7:57 AM CDT) HCG, ur, POC Negative Negative Lot Number [id number] QC Backgroud Clear Acceptable QC Control Line Acceptable Urine 08/13/2024 7:57 AM CDT Aurora Ross UNEMPLOYMENT SPECIALIST POINT OF CARE TEST OR DERABLES Final Result * HM PAP SMEAR WITH HPV (08/28/2020) Scribed Pap Smear w/HPV Normal Comment:Negative Vandana Moon UNEMPLOYMENT SPECIALIST HEALTH MAINTENANCE Final Result from Last 3 Months or Most Recently Relevant to Health Maintenance Insurance [facility] Member Subscriber Plan / Payer (Ef fective 2021-Present) Name:Mahogany Burns Relation to Subscriber:Self Name:Mahogany Burns Payer ID:[id number] (NAIC) Group ID:Not on file Type:MEDICAID RISK OTHER Address: ATTN: CLAIMS DEPT [address] [place] [phone] Care Teams Deicer Element Winder Machine Relationship Specialty Start Date End Date Anival Ling MD [address] [place] [address] PCP - General Family Medicine 01/16/24 Dominique Mg MD Referring Physician Obstetrics and Gynecology 11/27/20
--- OUTSIDE RECORDS SUMMARY | 2024-10-03 01:11 | XMS_ITS | Referral Summary ---
Author Organization [facility] Address [address] [place] [address] Phone Care Team Providers Care Bullion Weigher Name Role Phone Dominique Mg MD Unavailable [phone] Anival Ling MD Primary Care Provider [phone] Encounters Date Type Department Care Team Description 08/24/2024 9:20 AM CDT Office Visit [facility] - [facility] E[facility] [address] [facility] [address] [place] [address] [place] [address] Aurora Stevens MD Deviated nasal septum (Primary Dx) 08/13/2024 9:45 AM CDT - 08/13/2024 11:50 AM CDT Surgery [facility] Operating [facility] ([facility]) [address] [place] [address] Aurora Stevens MD REDUCTION INFERIOR TURBINATE. 08/13/2024 10:03 AM CDT Anesthesia Event [facility] ([facility]) [address] [place] [address] Jarocho Donahue MD DDS Heuvelman, Katherine Marie, NP 08/13/2024 6:45 AM CDT - 08/13/2024 1:12 PM CDT Hospital Encounter [facility] ([facility] [address] [place] [address] [place] [address] Aurora Stevens MD Hypertrophy of both inferior nasal turbinates (Primary Dx); Deviated nasal septum; Hypertrophy of nasal turbinates Discharge Disposition: Discharge to home or self care from Last 3 Months Allergies No known active allergies Medications clobetasoL [...] boils, Informant: Self, Reported on 08/13/2024 PNV 33-wjme-qsprcxc olate-dha 29 mg iron-1 mg -350 mg comb pack,tablet DR,capsule DRIndications:h ealth Take 1 capsule by mouth director of training before breakfast Active inulin 1.5 gram tablet,chewable Indications:fib er Take 1 capsule by mouth director of training before breakfast Active oxyCODONE (ROXICODONE) 5 mg immediate release tabletIndicatio ns:Pain Take 1 tablet (5 mg total) by mouth every 4 (four) hours as needed for pain (breakthrough pain) 10 tablet 5 Active sodium bicarb-sodium chloride packet 1 packet by sinus irrigation route 3 (three) times a day 100 packet 2 5 Active sod lfmax-ovglix-cs ueez bottle 2,300-700 mg kit Administer 1 spray into each nostril 3 (three) times a day 1 kit 5 Active Active Problems Problem Noted Date Diagnosed Date Deviated nasal septum 06/22/2024 Hypertrophy of both inferior nasal turbinates 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 [...] 07/16/2022 Assessment & Plan (07/05/2023 11:01 AM FLAT FOLDING MACHINE OPERATOR): Weight reduction, daily exercise and dietary modifications recommended. Assessment & Plan (04/28/2023 2:15 PM FLAT FOLDING MACHINE OPERATOR): Weight reduction, daily exercise and dietary modifications recommended. Assessment & Plan (03/28/2023 2:34 PM CDT): Weight reduction, daily exercise and dietary modifications recommended. Assessment & Plan (09/16/2022 1:32 PM CDT): Weight reduction, daily exercise and dietary modifications recommended. Assessment & Plan (07/16/2022 1:12 PM FLAT FOLDING MACHINE OPERATOR): Weight reduction, daily exercise and dietary modifications [...] bedtime. Assessment & Plan (07/16/2022 1:12 PM FLAT FOLDING MACHINE OPERATOR): X-rays ordered, will follow. Ibuprofen as needed for pain use as directed. Psoriasis 07/16/2022 Assessment & Plan (07/16/2022 1:12 PM FLAT FOLDING MACHINE OPERATOR): Has not been treating her psoriasis, patient is open to seeing a fisheries inspector. Trial of topical steroid in the meantime. Use as directed. Referred to dermatology. History of gestational diabetes 02/10/2021 state, gestational carrier 09/12/2020 Assessment & Plan (11/27/2020 10:47 AM CDT): No complaints. Managed by EXERCISE SPECIALIST. Resolved Problems Problem Noted Date Diagnosed Date Resolved Date White classification A1 gest ational diabetes mellitus (GDM) 10/05/2021 09/16/2022 09/16/2022 Obesity affecting , antepartum 09/12/2020 07/16/2022 Immunizations Immunization Administration Dates Next Due DTaP 02/05/2003, 0,07/06/1999,04/30,02/26/1999 HPV, Quadrivalent 06/12/2012,02/21/2012 HPV, Unspecified 12/09/2011 Hep A, Pediatric 06/12/2012,12/09/2011 Hep B / HiB 03/17/2000,04/30/1999,02/26/1999 IPV 02/05/2003 Influenza, Quadrivalent, Spl it, Preservative Free, Intramuscular 03/05/2019,02/02/2018 Influenza, Trivalent, IM (MDV) 03/11/2021 Influenza, Unspecified 03/28/2023(Deferr ed: Patient Refused),09/16/2022(Deferred: Patient Refused),03/28/2022(Deferred: Patient Refused) MMR 02/05/2003,12/29/1999 Meningococcal MCV4P (Menactra) 01/16/2016,2011 OPV 07/06/1999,04/30/1999,02/26/1999 Tdap 02/04/2021,12/09/2011 Varicella 02/21/2012,02/05/2003 Social History Tobacco Use Types Packs/Day Years [...] 08/24/2024 9:22 AM CDT Plan of Treatment Not on file Procedures Procedure Name Priority Date/Time Associated Diagnosis Comments SURGICAL PATHOLOGY Routine 08/13/2024 11 :25 AM CDT Deviated nasal septum Hypertrophy of nasal turbinates MO AN PROCEDURE PLACEHOLDER Routine 08/13/2024 10:30 AM CDT MO AN ELECTIVE ENDOTRACHEAL AIRWAY Routine 08/13/2024 10:30 [...] contents) 08/13/2024 11:25 AM CDT Narrative PATHOLOGY [facility] - 08/16/2024 9:36 AM CDT EPIC results best viewed via link to PDF [facility] [place] [address] Note to Patients: This report may contain [...] SURGICAL PATHOLOGY REPORT FINAL Patient Name: MAHOGANY RG Gender: F : 2000 (Age: 23) Address: [address] [place], [place] [id number] Hospital #: [id number] Taken:08/13/2024 Received:08/13/2024 Reported: 08/16/2024 Patient Type: [facility] Service: Surgery Location: Physician(s): Jose Maria Rolon M.D. Diagnosis: Sinus contents, bilateral, septoplasty: - Fragments of cartilage and bone with no histopathologic abnormality kw08/16/2024 08:28 By this signature, I attest that [...] Jar 0. dxb/08/13/2024 13:57 PA(s): RILEY Schultz, PA(ASCP)CM By this signature, I attest that the above diagnosis is based upon my personal examination of the slides(and/or other material). Addenda/Procedures The performance characteristics of some immunohistochemical stains, fluorescence in-situ hybridization tests and immunophenotyping by flow cytometry cited in this report (if any) were determined by the Surgical Pathology and Flow Cytometry Departments at [facility] as part of an ongoing quality tech program and in compliance with federally mandated [...] Surgical Pathology and Flow Cytometry Departments of [facility]. It has not been cleared or approved by the [place]. S. Food and Drug Administration. IMAGES AND SCANNED DOCUMENTS, IF INCLUDED, ONLY VIEWABLE IN PDF VERSION OF REPORT us Aurora Stevens MD LAB PATHOLOGY ORDERABLE S Final Result PATHOLOGY [facility] 3rd Floor [place], [place] [phone] * MO AN ELECTIVE ENDOTRACHEAL AIRWAY, MO AN PROCEDURE PLACEHOLDER (08/13/2024 10:30 AM CDT) Narrative Ana Muse CRNA - 08/13/2024 10:30 AM CDT Ana Muse CRNA 08/13/2024 10:30 AM Airway Patient location: OR Urgency: elective Indications for airway management: anesthesia Difficult airway: no Staff: Supervising provider: Jarocho Donahue MD DDS Placed by: HVAC PROJECT MANAGER: Ana Muse CRNA Emergent airway documentation: Risks [...] laryngoscopy Insertion site: oral Video blade type: Greenberg Blade size: 3 Cormack-Lehane (direct): grade I - full view of glottis Cormack-Lehane (video): grade I - full view of glottis Cuff volume: 6 mL Cuff inflated with: air ETT to lips: 23 cm Placement verified by: auscultation and CO2 detection Airway secured with: silk tape Number of attempts: 1 Jarocho Donahue MD DDS ANESTHESIA ORDERABLES Ivette l Result * POCT hCG, urine (08/13/2024 7:57 AM CDT) HCG, ur, POC Negative Negative Lot Number [id number] QC Backgroud Clear Acceptable QC Control Line Acceptable Urine 08/13/2024 7:57 AM CDT Aurora Ross CONTINUOUS VULCANIZING MACHINE OPERATOR POINT OF CARE TEST OR DERABLES Final Result * HM PAP SMEAR WITH HPV (08/28/2020) Scribed Pap Smear w/HPV Normal Comment:Negative Vandana Moon CONTINUOUS VULCANIZING MACHINE OPERATOR HEALTH MAINTENANCE Final Result from Last 3 Months or Most Recently Relevant to Health Maintenance Insurance [facility] Care Teams Bullion Weigher Relationship Specialty Start Date End Date Anival Ling MD [address] [place] [address] PCP - General Family Medicine 01/16/24 Dominique Mg MD Referring Physician Obstetrics and Gynecology 11/27/20
--- NOTE | 2024-10-03 13:13 | WPDHPUPDATE1 ---
History and Physical Update Update Date/Time: 10/03/24 13:13 History and Physical has been reviewed, including an updated exam of the patient. There are NO changes in the patient's condition. Risks, benefits, and alternatives have been discussed and questions answered. Patient agrees to proceed with procedure.
--- NOTE | 2024-10-03 13:14 | WPDANESEPPF ---
Anes - Initial Pre Proc Eval Procedure: Operation Date: 10/03/24 14:30 Proposed Procedures p Hysteroscopy Dilation and Curettage with Luz Endometrial Ablation - Troy Barney MD Date/Time: 10/03/24 13:14 Surgeon: Troy Barney MD Pre Op Diagnosis: menorrhagia Patient Data Age: 23 Gender: F Height: 1.63 m Weight: 122.7 kg Allergies Allergy/AdvReac Type Severity Reaction Status Date / Time No Known Allergies Allergy Verified 09/18/24 17:25 Home Medications ?Medication ?Instructions ?Recorded ?Confirmed ?Type vitamins no.121-iron 28 1 tablet PO DAILY 05/01/24 09/18/24 History mg-folic acid 800 mcg tablet Patient hx anesthesia problems: none Family hx anesthesia problems: none Results Review: All pre-operative results and documents have been reviewed as part of the pre-operative evaluation. [facility] Past Medical History Medical History Gestational diabetes Surgical History Surgical History H/O tubal ligation (~02/2024) Family History Family History Grandparent Diabetes mellitus Bone cancer Liver cancer Social History Social History Smoking status: Never smoker Second hand tobacco smoke exposure: No Alcohol intake: never Alcohol use details: OCCASIONAL Substance use: never Substance use type: does not use Do You Feel Safe in your Home?: Yes Lack of Transportation: No Lack of Food: Never True Current Housing: I Have Housing Concerned About Future Housing: No Difficulty Paying Gas/Electric Bills: No Difficulty Paying for Meds: No Currently Unemployed: No Education: High School Diploma/GED Difficulty w/ Childcare or Family Care: No Living arrangements: with family Additional living arrangements comments: 3 kids and significant other Spiritual care concerns: No Anes - Eval Final PreProcedure Day of Procedure 10/03/24 13:14 Patient weight: morbidly obese Heart: regular rate and rhythm Lungs: clear to auscultation Airway: Mallampati scale class II Neurological: alert and oriented Last oral intake: >/= 8 hours ASA classification: III Emergent: no Anesthetic plan: proceed Anesthesia type and monitoring: general GIVS and standard monitoring Results Review: All pre-operative results and documents have been reviewed as part of the pre-operative evaluation. Informed Consent: The patient's anesthetic plan and its attendant risks and benefits were discussed with the patient/family/POA. Questions were solicited and answers provided to the satisfaction of the patient/family/POA.
[2024-10-03 13:26] VITALS: BP 133/62; PULSE 72; RESP 16; TEMP 36.5; O2SAT 100
[2024-10-03] MEDS: ACETAMINOPHEN 500 MG TABLET 1000 MG PO (13:31)
[2024-10-03 13:32] LABS: BEDSIDEPREGUCG Negative (Negative)
[2024-10-03] MEDS: LACTATED RINGERS 1,000 ML 30 ML IV CONT (13:34)
[2024-10-03] MEDS: LIDOCAINE 1% LOCAL INJ 10 ML VIAL INFILTRATE (14:26)
[2024-10-03 14:45] VITALS: BP 96/50; PULSE 65; RESP 14; O2SAT 100
--- NOTE | 2024-10-03 14:46 | W.PM.PROC2 ---
Procedure Note - Detailed Date of Procedure 10/03/24 Pre-op Diagnosis menorrhagia Post-op Diagnosis Same Procedure Performed endometrial ablation with hysteroscopy d&c Surgeon Troy Barney MD Anesthesia MAC Indications Severe menorrhagia Findings Normal vulva vagina and cervix. Normal endometrium. Description of Procedure The patient was taken to the operating room. She was prepped and draped in the dorsal lithotomy position after induction of mac anesthesia. A speculum was placed in the vagina. Cervix grasped with a tenaculum. The cervix was dilated to about 1 cm. The hysteroscope was inserted. The above findings were noted. Endometrial curettage was performed with a medium-size curette. All surfaces of the endometrium were affected by the curettage. The specimens were collected and sent to pathology. Measurements were taken of the uterus and cervix. The uterine length was then entered into the hand piece of the Luz device. The device was inserted into the intrauterine cavity. The array of the device was expanded. The balloon cuff was inflated. A good seal was achieved. The energy and safety cycles were initiated and completed. The array was collapsed and the instrument was withdrawn after deflating the balloon cuff. Hysteroscope was reinserted. Above findings were noted. The hysteroscope was removed. The patient tolerated the procedure well. The speculum and tenaculum were removed. She was taken to recovery in stable condition. Sponge lap and needle counts were correct x2. Estimated Blood Loss 15 Pathology Yes Complications No immediate complications Condition Stable Disposition Same day
[2024-10-03 15:15] VITALS: BP 97/53; PULSE 62; RESP 14; O2SAT 100
[2024-10-03 15:40] VITALS: BP 106/58; PULSE 54; RESP 14
== END 2024-10-03 15:47 | disposition home or self-care (01) ==
PROVIDERS: PCP Family Medicine; Visit Provider Obstetrics & Gynecology
PROC: 0U5B8ZZ Destruction of Endometrium, Via Natural or Artificial Opening Endoscopic (ICD-10-PCS; CPT 58563; principal; 2024-10-03 14:30)
DX: N92.0 Excessive and frequent menstruation with regular cycle (principal); E66.01 Morbid (severe) obesity due to excess calories; Z68.42 Body mass index [BMI] 45.0-49.9, adult
CPT/HCPCS: 58563; 88305; A9270; J1885; J2003; J2250; J2405; J2704; J3010; J7120